=== PATIENT | female | born 1985 | race Caucasian/White ===

== ENCOUNTER 2020-10-04 09:00 | Outpatient (RCR) | payer OTHER, SELFPAY ==
[2020-09-30 12:03] VITALS: BMI 28.7
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
--- NOTE | 2020-10-03 15:23 | PC.NURSE ---
Client called cancelling for today because of a headache
--- NOTE | 2020-10-05 12:50 | PC.NURSE ---
Pt arrived today at community meeting and informed staff that she cannot attend group today, as she has a dental abscess or something similar. Her cheek was visibly swollen. She said she will call her MD and try to be seen.
--- NOTE | 2020-10-06 10:04 | PC.NURSE ---
Patient did not show to the program this morning. I called patient at 0930 and patient stated she has a visit with her children and could come to the program after the visit at 10:30. I told patient this was not possible as the program starts at 0900. I reviewed with patient that she has missed 3 days this week and at this point if she wanted to continue the program she would need to contact the program to set up a reassessment. Patient agreed and asked that I send her an email with contact information, which I did.
== END 2020-10-07 09:22 | disposition home or self-care (01) ==
LOC: HO.PHPA 09:00
PROVIDERS: Visit Provider Psychiatry & Neurology Psychiatry
DX: F39 Unspecified mood [affective] disorder (principal); F43.10 Post-traumatic stress disorder, unspecified; F11.20 Opioid dependence, uncomplicated; Z62.810 Personal history of physical and sexual abuse in childhood
CPT/HCPCS: 90791; 90853

== ENCOUNTER 2020-12-02 11:15 | Outpatient (RCR) | payer OTHER, SELFPAY ==
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
[2020-11-09 14:09] VITALS: BMI 28.8
--- NOTE | 2020-11-09 14:23 | PC.ADMIT ---
Patient admit to PHP today due to increased depression and anxiety, panic attacks. Patient states she feels hopeless denies SI, HI, VH, AH. No medications to verify, patient has not taken meds for over a month. Per [facility], last meds picked up were in September of this year and were for only 7 days. Patient no longer goes to Methadone Clinic. Reports last time she used heroin was over 2 weeks ago. Patient denies every taken Narcan. Current medical issue: Patient has new lumps bilateral breasts. Patient waiting for call to schedule mammogram. Encouraged patient to call PCP today as patient has history of Lumpectomy right breast. Patient verbalized understanding. Patient reports no alcohol use x 2 years. Patient affect appropriate, alert, responsive, anxious, depressed. Patient verbalizes understanding of admission instructions, [facility] [place] schedule.
--- NOTE | 2020-11-11 08:02 | PC.NURSE ---
Case opened in treatment team
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
--- NOTE | 2020-12-02 14:01 | PC.NURSE ---
Patient discharge 12/07/2020. Patient declined discharge /medication appointments with Bell Valdez APRN and this development writer. Discharge medication list sent to PCP, JAMEEL Rodgers.
--- NOTE | 2020-12-02 14:44 | P.EN_ITS ---
Event Note Date of Service: 12/02/20 Event Note: Patient was scheduled to meet with this health technical writer on December 01 at 11:20, and did not appear for appointment. She was rescheduled to meet with this health technical writer today at 13:10. Patient did not appear for today's appointment either.
--- NOTE | 2020-12-02 14:44 | PM.EVENT ---
Event Note Date of Service: 12/02/20 Event Note: Patient was scheduled to meet with this typewriter repairer on December 01 at 11:20, and did not appear for appointment. She was rescheduled to meet with this typewriter repairer today at 13:10. Patient did not appear for today's appointment either.
== END 2020-12-05 07:53 | disposition home or self-care (01) ==
LOC: HO.PHPA 11:15
PROVIDERS: Visit Provider Psychiatry & Neurology Psychiatry
DX: F43.10 Post-traumatic stress disorder, unspecified (principal); F39 Unspecified mood [affective] disorder; F11.20 Opioid dependence, uncomplicated; Z62.810 Personal history of physical and sexual abuse in childhood
CPT/HCPCS: 90791; 90853

== ENCOUNTER 2021-11-03 00:45 | Emergency (ER) | payer MEDICAID, SELFPAY ==
[2021-11-03 00:47] VITALS: BP 143/100; PULSE 90; RESP 15; TEMP 36.8; O2SAT 96
--- NOTE | 2021-11-03 01:05 | ED.SKABFB ---
HPI - Skin/Abscess/Foreign Bdy General Chief complaint: Skin/Abscess/Foreign Body Stated complaint: Abscess Time Seen by Provider: 11/03/21 00:47 Source: patient Mode of arrival: ambulatory Limitations: no limitations History of Present Illness HPI narrative: 36-year-old female with a history of IV drug abuse here with reports of redness, swelling to the left forearm. Patient tells me she used cocaine and the arm 3 days ago. She knows that she missed the vein. The next day she developed swelling and redness. She tried to open the abscess with a razor blade at home but was unsuccessful. She does want detox resources. Her last tetanus was in February of 2021 Related Data Previous Rx's Medication Instructions Recorded escitalopram oxalate 5 mg tablet 5 mg PO DAILY 7 days #7 tabs 11/23/20 (Lexapro) prazosin 5 mg capsule 5 mg PO BEDTIME 7 days #7 caps 11/23/20 quetiapine 100 mg tablet (Seroquel) 100 mg PO BID 7 days #14 tabs 11/23/20 quetiapine 200 mg tablet (Seroquel) 200 mg PO BEDTIME 7 days #7 tabs 11/23/20 ibuprofen 800 mg tablet 800 mg PO Q6H PRN pain #30 tabs 11/03/21 sulfamethoxazole 800 1 tab PO Q12H #14 tabs 11/03/21 mg-trimethoprim 160 mg tablet (Bactrim DS) Allergies Allergy/AdvReac Type Severity Reaction Status Date / Time doxycycline Allergy Redness of Verified 09/30/20 11:47 Skin Review of Systems Review of Systems: Yes all other systems are reviewed and are negative Constitutional: Constitutional: Reports no additional constitutional complaints, Denies body ache(s), Denies chills, Denies fever(s), Denies headache(s) and Denies weakness Eyes: Eyes: Reports no additional eye complaints and Denies change in vision ENT: Reports system reviewed and no additional complaints, except as documented, Denies dizziness, Denies headache(s), Denies nasal congestion, Denies nasal discharge and Denies neck pain Cardiovascular: Cardiovascular: Reports no additional cardiovascular complaints, Denies chest pain, Denies leg edema and Denies dyspnea Respiratory: Respiratory: Reports no additional respiratory complaints, Denies cough and Denies dyspnea Gastrointestinal: Gastrointestinal: Reports no additional gastrointestinal complaints, Denies abdominal pain, Denies diarrhea, Denies nausea and Denies vomiting Genitourinary: Genitourinary: Reports no additional female genitourinary complaints and Denies urinary incontinence Musculoskeletal: Musculoskeletal: Reports no additional musculoskeletal complaints, Denies back pain, Denies arthralgias, Denies joint swelling, Denies neck pain, Denies numbness and Denies tingling Integumentary/Breasts: Skin/Breast: Reports system reviewed and no additional complaints, except as docu, Reports swelling, Reports erythema and Denies rash Neurologic: Reports system reviewed and no additional complaints, except as documented, Denies Abnormal speech present, Denies dizziness, Denies headache(s), Denies numbness, Denies tingling and Denies weakness PMFSH Past Medical History Attestation statement: The following information was validated with the patient. Source: old records reviewed and nursing notes reviewed Medical History Degenerative arthritis Diverticula of intestine Endometriosis Surgical History History of appendectomy History of delivery History of lumpectomy of right breast Social History Social History Household Members: Family Patient Tobacco Use Status: Current everyday Tobacco user Tobacco use type: Cigarette Cigarette Packs Per Day: 1 Cigarettes Per Day: 20 Years Smoked: since I was 12 Physical Exam Vital Signs: Vital Signs: Last Vital Signs Temp 98.3 F 11/03/21 00:47 Pulse 90 11/03/21 00:47 Resp 15 11/03/21 00:47 BP 143/100 H 11/03/21 00:47 Pulse Ox 96 11/03/21 00:47 O2 Del Method 11/03/21 00:47 BMI result Body Mass Index 30.0 Const: General: cooperative, healthy appearing, comfortable and no acute distress Orientation/consciousness: patient oriented x3 Limitations: no limitations HEENT: Head: Yes normal to inspection Ears: hearing grossly normal bilaterally General nose exam: Normal external nose present Face and sinus: Yes normal facial exam Mouth: Normal oral and palatal mucosa present Throat: Yes posterior oropharynx normal Eyes: General: appearance normal, both eyes and all related structures Pupils: Equal, round and reactive pupils present Neck: Neck: Yes normal visual inspection Chest: Chest palpation & inspection: normal inspection of the chest Resp: Effort & Inspection: normal respiratory effort Auscultation: clear to auscultation bilaterally Cardio: Rate: regular rate Rhythm: regular rhythm Peripheral pulses: Peripheral pulses 2+ throughout GI: Inspection: Yes normal to inspection Palpation (GI): Soft to palpation and nontender Auscultation: normal bowel sounds Back/Spine/Pelvis: Thoracic/Lumbar Spine: thoracic and lumbar spine normal to inspection Skin: General skin exam: no rashes or lesions noted Neuro: General: patient oriented x3, no focal motor deficits and normal sensation to monofilament Cranial nerves: Yes Equal, round and reactive pupils present Cognition (Neuro): normal cognition Speech: No Abnormal speech present Gait exam (Neuro): Normal gait present Motor exam (neuro): 5/5 motor strength present throughout Extrem: General: Yes normal to inspection Elbow/forearm/wrist images: 1. Circular area of redness/swelling which is indurated/firm. No fluctuance/pointing. Course Course Course Narrative: 36-year-old female with a history of IV drug abuse here with abscess the left forearm. The site is firm and indurated. It is not fluctuant. I discussed with the patient that at this time I and D is not indicated. She should continue warm compresses. We will start her on oral antibiotics. I recommended she return if the site is more fluctuance so we may perform an I&D. I offer detox resources and she declined this. Reviewed worrisome signs and symptoms of when to return to the emergency department. Comfortable discharge home. MDM - Skin/Abscess/Foreign Bdy Medical Records Attestation: I reviewed the patient's medical records. Lab Data Attestation: I reviewed the patient's lab results. Discharge Plan Discharge Clinical Impression: Abscess of skin or subcutaneous tissue Patient Disposition: Home, Self-Care Instructions: Abscess (ED) Additional Instructions: Warm compresses 4 times daily Come back to see us if the abscess is softer so we can drain it Prescriptions: New ibuprofen 800 mg tablet 800 mg PO Q6H PRN (Reason: pain) Qty: 30 0RF sulfamethoxazole-trimethoprim [Bactrim DS] 800-160 mg tablet 1 tab PO Q12H Qty: 14 0RF No Action quetiapine [Seroquel] 100 mg tablet 100 mg PO BID 7 Days Qty: 14 0RF quetiapine [Seroquel] 200 mg tablet 200 mg PO BEDTIME 7 Days Qty: 7 0RF prazosin 5 mg capsule 5 mg PO BEDTIME 7 Days Qty: 7 0RF escitalopram oxalate [Lexapro] 5 mg tablet 5 mg PO DAILY 7 Days Qty: 7 0RF Referrals: Physician,Unknown J [Primary Care Provider] -
[2021-11-03] MEDS: Sulfamethox/Trimeth 800/160 TABLET 1 TAB PO (01:11)
[2021-11-03] MEDS: Lidocaine 4 % Cream KIT 1 APPL TOPICAL (01:13)
[2021-11-03] MEDS: Ketorolac Tromethamine 60 MG/2 ML VIAL IM (01:13)
== END 2021-11-03 01:29 | disposition home or self-care (01) ==
LOC: HO.ED 01:27
PROVIDERS: Emergency Provider Internal Medicine
DX: L02.414 Cutaneous abscess of left upper limb (principal); F14.90 Cocaine use, unspecified, uncomplicated
CPT/HCPCS: 96372; 99283; 99284; J1885

== ENCOUNTER 2021-11-15 06:41 | Inpatient (IN) | payer OTHER, SELFPAY ==
--- NOTE | 2021-11-15 | ECG_ITS ---
Test Reason : med clearance Blood Pressure : / mmHG Vent. Rate : 049 BPM Atrial Rate : 049 BPM P-R Int : 138 ms QRS Dur : 098 ms QT Int : 510 ms P-R-T Axes : -02 062 044 degrees QTc Int : 460 ms Sinus bradycardia Nonspecific T wave abnormality Borderline ECG No previous ECGs available Referred By: Karin Spangler Electronically Signed By:DEBBI ROBINS
[2021-11-15 07:05] VITALS: BP 142/105; PULSE 76; RESP 16; TEMP 36.7; O2SAT 98; BMI 28.6
--- NOTE | 2021-11-15 07:26 | ED.PSYCH ---
HPI - Psych General Chief Complaint: Psychiatric Symptoms Stated Complaint: Seeking detox/Abscess Time Seen by Provider: 11/15/21 07:26 Source: patient Mode of arrival: ambulatory Limitations: no limitations History of Present Illness MD complaint: suicidal ideation, feels depressed and substance abuse Onset (ago): day(s) (few) Duration: getting worse History of same: Yes Relieving factors: none Exacerbating factors: drug use Context: recent drug abuse and not taking psychiatric medications Associated psychiatric symptoms: depression and suicidal ideation Associated symptoms: other (c/o rash at injection sites) Treatments prior to arrival: none If self harm: admits thoughts of self harm Related Data Home Medications Medication Instructions Recorded Confirmed methadone 95 mg PO DAILY 11/15/21 11/15/21 Previous Rx's Medication Instructions Recorded escitalopram oxalate 5 mg tablet 5 mg PO DAILY 7 days #7 tabs 11/23/20 (Lexapro) prazosin 5 mg capsule 5 mg PO BEDTIME 7 days #7 caps 11/23/20 quetiapine 100 mg tablet (Seroquel) 100 mg PO BID 7 days #14 tabs 11/23/20 quetiapine 200 mg tablet (Seroquel) 200 mg PO BEDTIME 7 days #7 tabs 11/23/20 ibuprofen 800 mg tablet 800 mg PO Q6H PRN pain #30 tabs 11/03/21 sulfamethoxazole 800 1 tab PO Q12H #14 tabs 11/03/21 mg-trimethoprim 160 mg tablet (Bactrim DS) Allergies Allergy/AdvReac Type Severity Reaction Status Date / Time doxycycline Allergy Redness of Verified 09/30/20 11:47 Skin Review of Systems Review of Systems: Constitutional : No Fever, No Chills ENT/Mouth : No Ear Pain, No Nasal Congestion, No sore throat Eyes: No Eye Pain, No Swelling, No Redness Cardiovascular : No Chest Pain, No SOB Respiratory : No Cough, No Sputum, No Dyspnea Gastrointestinal : No Nausea, No Vomiting, No Diarrhea, No Hematochezia, No Melena Genitourinary : No Dysuria, No Urinary Frequency, No Hematuria Musculoskeletal : No Myalgias Skin : pos Skin Lesions, pos rash Neuro : No Weakness, No Numbness, No Paresthesias, No Dizziness, No Headache Psych : positive Anxiety, positive Depression, positive SI no HI Heme/Lymph: No Lymphadenopathy Endocrine : No Polyuria, No Polydipsia All other systems reviewed and are negative [facility] Past Medical History Attestation statement: The following information was validated with the patient. Medical History Degenerative arthritis Diverticula of intestine Endometriosis Mood disorder Opioid dependence Post traumatic stress disorder (PTSD) Surgical History History of appendectomy History of delivery History of lumpectomy of right breast Social History Social History (Updated 11/15/21 @ 07:27 by Karin Spangler DO) Household Members: Family Patient Tobacco Use Status: Current everyday Tobacco user Tobacco use type: Cigarette Cigarette Packs Per Day: 1 Cigarettes Per Day: 20 Years Smoked: since I was 12 Use of substances other than those prescribed or required for medical reasons: Yes Advance Directives: No Healthcare Proxy: No Guardian: No Physical Exam Vital Signs: Vital Signs: Last Vital Signs Temp 98.0 F 11/15/21 07:05 Pulse 76 11/15/21 07:05 Resp 16 11/15/21 07:05 BP 142/105 H 11/15/21 07:05 Pulse Ox 98 11/15/21 07:05 O2 Del Method 11/15/21 07:05 BMI result Body Mass Index 28.6 Appearance: Alert. Oriented X3. No acute distress. Anxious, withdrawn, somewhat agitated with questioning Eyes: Pupils equal, round and reactive to light. ENT: Pharynx normal. Neck: Normal inspection. Neck supple. injection site L EJ but no signs of abscess or cellulitis CVS: Normal heart rate and rhythm. Pulses normal. Respiratory: No respiratory distress. Breath sounds normal. Abdomen: Soft and nontender. Skin: Skin warm and dry. Normal skin color. Normal skin turgor. both ACs old and new injection sites no signs of cellulitis or abscess, both ankles have injection sites R ankle no signs of infection, L ankle mild erythema noted no fluctuance on medial aspect of ankle Extremities: No lower extremity edema. No calf ttp Neuro: Oriented X 3. No motor deficit. No sensory deficit. CN 2-12 intact Course Course Course Narrative: admit to [facility]3 per CARE team MDM - Psych MDM Narrative Medical decision making narrative: 36 yo female with hx of mood disorder, PTSD, substance abuse here with c/o drug abuse and not taking medications since April. She reports SI. She also notes that she has concern for infection at IVDA site there are no abscesses noted but she does have mild erythema on left ankle will start on cephalexin. Will obtain labs and refer to [facility]. Lab Data Result diagrams: 11/15/21 12:00 11/15/21 12:00 Labs: Lab Results 11/15/21 11/15/21 11/15/21 Range/Units 08:20 12:00 12:00 WBC 5.9 (4.8-10.8) X10*3/uL RBC 4.33 (4.20-5.50) X10*6/uL Hgb 12.4 (12.0-16.0) g/dl Hct 37.7 (37.0-47.0) % MCV 87.1 (80.0-98.0) fL MCH 28.6 (27.0-33.0) pg MCHC 32.9 (31.0-35.0) g/dl RDW 13.2 (11.0-16.0) % Plt Count 262 (160-400) X10*3/uL MPV 10.4 (9.4-12.3) fL Immature Gran % (Auto) 0.2 (0.0-0.4) % Neut % (Auto) 54.0 (45-73) % Lymph % (Auto) 32.2 (20-40) % [place] % (Auto) 10.8 (2-11) % Eos % (Auto) 2.0 (0-4) % Baso % (Auto) 0.8 (0-2) % Lymph # (Auto) 1.9 (1.2-4.9) X10*3/uL [place] # (Auto) 0.6 (0.1-1.2) X10*3/uL Eos # (Auto) 0.1 (0.0-0.4) X10*3/uL Baso # (Auto) 0.1 (0.0-0.2) X10*3/uL Abs Immat Gran (auto) 0.01 (0.00-0.03) X10*3/uL Absolute Neuts (auto) 3.2 (2.0-8.3) x10*3/uL Absolute Nucleated RBC 0.000 (0.0-0.012) X10*3/uL Nucleated RBC % (auto) 0.0 (0.0-0.2) /100WBC Sodium 138 (135-145) mmol/L Potassium 4.2 (3.3-5.1) mmol/L Chloride 106 (96-108) mmol/L Carbon Dioxide 25 (22-29) mmol/L Anion Gap 11 L (12-20) BUN 11 (9-16) mg/dL Creatinine 0.71 (0.5-1.4) mg/dL Estim Creat Clear Calc 109.1 Estimated GFR > 60 Random Glucose 102 (60-115) mg/dL Calcium 8.6 (8.4-10.2) mg/dL Total Bilirubin 0.4 (0.0-1.0) mg/dL Direct Bilirubin < 0.2 (0.0-0.5) mg/dL AST 20 (5-31) U/L ALT 12 (0-31) U/L Alkaline Phosphatase 63 (39-117) U/L Total Protein 6.8 (6.5-8.0) g/dL Albumin 4.0 (3.5-5.0) g/dL COVID-19 (RUSSELL) Negative (Negative) COVID-19 Clin Com See Note ECG Data Attestation: I personally reviewed and interpreted this ECG as follows: ECG interpretation date: 11/15/21 ECG interpretation time: 14:10 Interpretation: Rate: 49 Rhythm: sinus bradycardia [place]anan: normal Normal P waves. Normal NAVARRO. Normal QRS complex. ST T wave : no JOSE, nonspecific qTC: prolonged prior studies: no acute ischemia The study has been interpreted contemporaneously by me. . Discharge Plan Discharge Clinical Impression: Suicidal ideation, Cellulitis, Substance abuse Patient Disposition: Admitted As Inpatient Prescriptions: No Action quetiapine [Seroquel] 100 mg tablet 100 mg PO BID 7 Days Qty: 14 0RF quetiapine [Seroquel] 200 mg tablet 200 mg PO BEDTIME 7 Days Qty: 7 0RF prazosin 5 mg capsule 5 mg PO BEDTIME 7 Days Qty: 7 0RF escitalopram oxalate [Lexapro] 5 mg tablet 5 mg PO DAILY 7 Days Qty: 7 0RF ibuprofen 800 mg tablet 800 mg PO Q6H PRN (Reason: pain) Qty: 30 0RF sulfamethoxazole-trimethoprim [Bactrim DS] 800-160 mg tablet 1 tab PO Q12H Qty: 14 0RF methadone 95 mg PO DAILY
--- NOTE | 2021-11-15 07:45 | PC.NURSE ---
Addendum to triage - Client self-presents to Emergency Department with SI with plan to overdose on drugs (cocaine, heroin). Pt. states precipitant is loss of her children in June of 2021. Pt. states past diagnosis of PTSD, MDD, anxiety, depression. States previously on Seroquel and Prazosin last in April of 2021. Pt. has abscesses which she had previously had treated here November 03, 2021. Pt. states attempting suicide by using as much drugs as she can obtain . Denies auditory and/or visual hallucinations. Contracts for safety. Pt. is current Methadone pt. at [facility], [place], [place]. Lives with her friend and her friend's .
[2021-11-15 08:52] LABS: COVID-19 Test Negative (Negative); IDNOW Serial# 16C4AD1C
[2021-11-15] MEDS: cephALEXin 500 MG CAPSULE PO ×4 (09:00→22:15)
[2021-11-15] MEDS: methADONE HCl 20 MG/2 ML ORAL.CONC 95 MG PO (09:37)
--- NOTE | 2021-11-15 11:23 | PC.NURSE ---
clients daughter called to check in on patient
[2021-11-15 12:06] LABS: MANUAL DIFF FLAG NO
[2021-11-15 12:08] LABS: Basophils Absolute Auto 0.1 X10*3/uL (0.0-0.2); Basophils Percent Auto 0.8 % (0-2); Eosinophils Absolute Auto 0.1 X10*3/uL (0.0-0.4); Hematocrit 37.7 % (37.0-47.0); Hemoglobin 12.4 g/dl (12.0-16.0); Imm Gran Abs Auto 0.01 X10*3/uL (0.00-0.03); Imm Gran Pct Auto 0.2 % (0.0-0.4); Lymphocytes Absolute Auto 1.9 X10*3/uL (1.2-4.9); Lymphocytes Percent Auto 32.2 % (20-40); Mean Corpuscular HGB Conc 32.9 g/dl (31.0-35.0); Mean Corpuscular Hemoglobin 28.6 pg (27.0-33.0); Mean Corpuscular Volume 87.1 fL (80.0-98.0); Mean Platelet Volume 10.4 fL (9.4-12.3); Monocytes Absolute Auto 0.6 X10*3/uL (0.1-1.2); Monocytes Percent Auto 10.8 % (2-11); Neutrophils Absolute Auto 3.2 x10*3/uL (2.0-8.3); Platelet Count 262 X10*3/uL (160-400); Red Blood Count 4.33 X10*6/uL (4.20-5.50); Red Cell Distribution Width 13.2 % (11.0-16.0); White Blood Count 5.9 X10*3/uL (4.8-10.8)
[2021-11-15 12:32] LABS: Alanine Aminotransferase 12 U/L (0-31); Alkaline Phosphatase 63 U/L (39-117); Anion Gap 11 (12-20); Aspartate Amino Transferase 20 U/L (5-31); Bilirubin Direct < 0.2 mg/dL (0.0-0.5); Bilirubin Total 0.4 mg/dL (0.0-1.0); Blood Urea Nitrogen 11 mg/dL (9-16); Calcium 8.6 mg/dL (8.4-10.2); Carbon Dioxide 25 mmol/L (22-29); Chloride 106 mmol/L (96-108); Creatinine Clr Calc Pharmacy 109.1; Estimated Glomerular Filt Rate > 60; Glucose Random 102 mg/dL (60-115); Potassium 4.2 mmol/L (3.3-5.1); Sodium 138 mmol/L (135-145); Total Protein 6.8 g/dL (6.5-8.0)
[2021-11-15] MEDS: Ibuprofen 600 MG TABLET PO ×2 (14:38→22:43)
[2021-11-15 18:00] LABS: Appearance Urine CLOUDY; Color Urine RED; Glucose Urine UA NEG (NEG); Leukocyte Esterase Urine NEG (NEG); Nitrite Urine POS (NEG); Specific Gravity - Urine >= 1.030 (1.005-1.025); UACC Culture Trigger YES; Urine Blood 3+ (NEG); Urine Ketones 5 MG/DL (NEG); Urine Protein 2+ MG/DL (NEG-TRACE)
[2021-11-15 18:04] LABS: UPreg QC Valid YES; Urine Pregnancy NEGATIVE (NEGATIVE)
[2021-11-15 18:17] LABS: Fentanyl, urine POSITIVE (Not Detect)
[2021-11-15 18:19] LABS: Amphetamine Screen Urine Not Detected (Not Detect); Barbiturates, Urine Not Detected (Not Detect); Cannabinoid Screen Urine POSITIVE (Not Detect); Cocaine Screen Urine POSITIVE (Not Detect); Opiate Screen Urine POSITIVE (Not Detect); Phencyclidine Screen Urine Not Detected (Not Detect)
[2021-11-15 18:25] LABS: RBC Urine TNTC /HPF (0); WBC Urine 0-2 /HPF (0-4)
[2021-11-15 18:26] LABS: Bacteria Urine 1+ /LPF
[2021-11-15 20:30] VITALS: BP 133/72; PULSE 60; TEMP 36.7; O2SAT 98
[2021-11-15] MEDS: traZODone HCL 50 MG TABLET PO (22:16)
[2021-11-15] MEDS: Acetaminophen 325 MG TABLET 650 MG PO (22:16)
[2021-11-15] MEDS: hydrOXYzine HCL 25 MG TABLET PO (22:16)
[2021-11-15 23:45] VITALS: BMI 25.3
--- NOTE | 2021-11-16 01:38 | PC.NURSE ---
admission noted for 11/15/21-this is the 1st behavioral health admission for this 36 year old female. legal CVC dx unspecified mood d/o, opioid dependence, uncomplicated. PTSD. patient with significant HX of trauma. patient endorses substance use opioids, fentanyl and marijuana. reports long HX of use. Hx of being on medications for behavioral health issues but none since April. patient with multiple track sherman on bilateral arms, ankles + c/o neck discomfort. patient also with a significant sun burn. started on antibiotics for area on L forearm. was a referral from the ER by the CARE team. nurse to nurse, collateral information obtained prior to admission.
[2021-11-16] MEDS: hydrOXYzine HCL 25 MG TABLET PO (06:43)
[2021-11-16] MEDS: Ibuprofen 600 MG TABLET PO ×2 (06:48→12:53)
[2021-11-16] MEDS: methADONE HCl 20 MG/2 ML ORAL.CONC 95 MG PO (08:20)
[2021-11-16] MEDS: cephALEXin 500 MG CAPSULE PO ×4 (08:20→20:28)
[2021-11-16 08:35] VITALS: BP 129/79; PULSE 69; RESP 18; TEMP 36.7; O2SAT 99
[2021-11-16] MEDS: QUEtiapine Fumarate 50 MG TABLET PO (09:24)
[2021-11-16 10:47] LABS: Alanine Aminotransferase 13 U/L (0-31); Albumin Level 4.2 g/dL (3.5-5.0); Alkaline Phosphatase 64 U/L (39-117); Anion Gap 11 (12-20); Aspartate Amino Transferase 14 U/L (5-31); Bilirubin Total 0.4 mg/dL (0.0-1.0); Blood Urea Nitrogen 15 mg/dL (9-16); Calcium 9.1 mg/dL (8.4-10.2); Carbon Dioxide 25 mmol/L (22-29); Chloride 106 mmol/L (96-108); Cholesterol 175 mg/dL; Creatinine Clr Calc Pharmacy 98.5; Estimated Glomerular Filt Rate > 60; Glucose Fasting 93 mg/dL (60-99); HDL Cholesterol 40 mg/dL; LDL Cholesterol Calculated 114 mg/dl; Potassium 4.3 mmol/L (3.3-5.1); Sodium 138 mmol/L (135-145); Thyroid Stimulating Hormone 1.05 uIU/mL (0.32-4.0); Triglycerides 106 mg/dL
[2021-11-16 10:48] LABS: Benzodiazepines Screen Urine NOT DETECTED (Not Detect)
[2021-11-16 10:54] VITALS: BMI 25.3
--- NOTE | 2021-11-16 11:00 | MHC.CLN ---
RE: CONSULT PT IS MODERATELY MALNOURISHED PT WITH 10% SIGNIFICANT WT LOSS X 1 MONTH AND POOR CHRONIC PO INTAKE X 3 MONTHS R/T IVDA, NON COMPLIANCE WITH PSYCH MEDICATION. PT HAS RECENT FLUCTUATING WTS 69KG (11/15/21) AND 75.75KG (11/15/21) IF USING THE 69KG WT- PT TRIGGERS FOR 10% SIGNIFICANT WT LOSS X 1 MONTH. PT REPORTED WT LOSS AND POOR PO INTAKE. ALSO NOTED ON NSG ADMISSION ASSESSMENT DIET RX: REGULAR-APPROPRIATE MONITOR PO INTAKE CLOSELY IF PO INTAKE <75% X 3 DAYS; RECOMMEND ADDING ENSURE BID TO INCREASE KCALS WEEKLY WEIGHTS SEE ALSO FULL CLINICAL NUTRITION ASSESSMENT
[2021-11-16 11:16] LABS: Magnesium 2.1 mg/dL (1.6-2.6)
[2021-11-16 11:25] LABS: Folate 14.5 ng/mL (> or = 4.0); Vitamin B12 751 pg/mL (200-900)
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
[2021-11-16] MEDS: QUEtiapine Fumarate 100 MG TABLET PO (15:21)
[2021-11-16] MEDS: Escitalopram Oxalate 5 MG TABLET PO (15:21)
[2021-11-16 18:00] VITALS: BP 135/78; PULSE 62; TEMP 36.8; O2SAT 98
[2021-11-16] MEDS: Prazosin HCL 1 MG CAPSULE PO (20:28)
[2021-11-16] MEDS: hydrOXYzine HCL 50 MG TABLET PO (20:28)
[2021-11-16] MEDS: QUEtiapine Fumarate 200 MG TABLET PO (20:28)
[2021-11-17 06:00] VITALS: BP 126/81; PULSE 58; RESP 18; TEMP 36.4; O2SAT 98
[2021-11-17] MEDS: Ibuprofen 800 MG TABLET PO ×2 (07:32→19:23)
[2021-11-17] MEDS: QUEtiapine Fumarate 50 MG TABLET PO (07:32)
[2021-11-17] MEDS: cephALEXin 500 MG CAPSULE PO ×4 (08:13→20:41)
[2021-11-17] MEDS: QUEtiapine Fumarate 100 MG TABLET PO ×2 (08:13→12:48)
[2021-11-17] MEDS: Escitalopram Oxalate 5 MG TABLET PO (08:13)
[2021-11-17] MEDS: methADONE HCl 20 MG/2 ML ORAL.CONC 95 MG PO (08:13)
--- NOTE | 2021-11-17 12:29 | HO.PSYCHPN ---
Subjective Subjective Date of Service: 11/17/21 Reason For Visit: Seeking detox/Abscess Subjective Notes: Conditional Voluntary Interim History: Pt more visible in the morning. She later went to bed, reports she did not sleep very well and feels tired. She denies SI. She continues to report depressed mood, hopeless. interview limited by fact that pt reports she is tired and wanted to sleep. Per nursing, no behavioral concern. Medication Compliance: Yes Side effects from medications: No Attending Groups: Yes Review of Systems Review of Systems Constitutional : No Fever, No Chills ENT/Mouth : No Ear Pain, No Nasal Congestion, No sore throat Eyes: No Eye Pain, No Swelling, No Redness Cardiovascular : No Chest Pain, No SOB Respiratory : No Cough, No Sputum, No Dyspnea Gastrointestinal : No Nausea, No Vomiting, No Diarrhea, No Hematochezia, No Melena Genitourinary : No Dysuria, No Urinary Frequency, No Hematuria Musculoskeletal : No Myalgias Skin : pos Skin Lesions, pos rash Neuro : No Weakness, No Numbness, No Paresthesias, No Dizziness, No Headache Psych : positive Anxiety, positive Depression, positive SI no HI Heme/Lymph: No Lymphadenopathy Endocrine : No Polyuria, No Polydipsia All other systems reviewed and are negative Mental Status Exam Mental Status Exam Narrative: appropriately dressed and groomed. cooperative, no PMA/PMR. speech nml in rate, amount, loudness, tone, latency. thoughts linear and logical. affect full range, normo-intense, non-labile. mood all right. endorses minor SI currently but stronger SIBI (denies intent or plan on unit). denies HI/AVH. Diagnostics Vital Signs (24Hr): Vital Signs - 24 hr 11/16/21 18:00 11/17/21 06:00 Temperature 98.3 F 97.6 F Pulse Rate 62 58 Respiratory Rate 18 Blood Pressure 135/78 126/81 Pulse Oximetry 98 98 Oxygen Delivery Method Room Air Room Air BMI result Body Mass Index 25.3 Labs Results: 11/15/21 12:00 11/16/21 09:04 Labs: Laboratory Results - last 48 hr 11/15/21 11/15/21 11/15/21 17:51 17:51 17:51 Sodium Potassium Chloride Carbon Dioxide Anion Gap BUN Creatinine Estim Creat Clear Calc Estimated GFR Fasting Glucose Calcium Magnesium Total Bilirubin AST ALT Alkaline Phosphatase Total Protein Albumin Triglycerides Cholesterol LDL Cholesterol, Calc HDL Cholesterol Vitamin B12 Folate TSH Urine Color RED A Urine Appearance CLOUDY Urine pH 5.0 Ur Specific [place] >= 1.030 H Urine Protein 2+ H Urine Glucose (UA) NEG Urine Ketones 5 Urine Blood 3+ H Urine Nitrite POS H Ur Leukocyte Esterase NEG Urine RBC TNTC H Urine WBC 0-2 Ur Squamous Epith Cells NONE Urine Bacteria 1+ Urine Test NEGATIVE Urine Opiates Screen POSITIVE H Urine Fentanyl Screen POSITIVE H Ur Barbiturates Screen Not Detected Ur Phencyclidine Scrn Not Detected Ur Amphetamines Screen Not Detected U Benzodiazepines Scrn NOT DETECTED Urine Cocaine Screen POSITIVE H U Marijuana (THC) Screen POSITIVE H 11/16/21 11/16/21 09:04 09:04 Sodium 138 Potassium 4.3 Chloride 106 Carbon Dioxide 25 Anion Gap 11 L BUN 15 Creatinine 0.77 Estim Creat Clear Calc 98.5 Estimated GFR > 60 Fasting Glucose 93 Calcium 9.1 Magnesium 2.1 Total Bilirubin 0.4 AST 14 ALT 13 Alkaline Phosphatase 64 Total Protein 7.0 Albumin 4.2 Triglycerides 106 Cholesterol 175 LDL Cholesterol, Calc 114 HDL Cholesterol 40 Vitamin B12 751 Folate 14.5 TSH 1.05 Urine Color Urine Appearance Urine pH Ur Specific [place] Urine Protein Urine Glucose (UA) Urine Ketones Urine Blood Urine Nitrite Ur Leukocyte Esterase Urine RBC Urine WBC Ur Squamous Epith Cells Urine Bacteria Urine Test Urine Opiates Screen Urine Fentanyl Screen Ur Barbiturates Screen Ur Phencyclidine Scrn Ur Amphetamines Screen U Benzodiazepines Scrn Urine Cocaine Screen U Marijuana (THC) Screen Medications Medications Current Medications Acetaminophen (Acetaminophen 325 Mg Tablet) 650 mg PO Q6H PRN PRN Reason: Headache/Pain Mild Scale (1-3) Last Admin: 11/17/21 12:47 Dose: 650 mg Al Hydroxide/Mg Hydroxide (Magnesium Hydrox/Alum Hydrox 30 Ml Oral.Susp) 30 ml PO Q6H PRN PRN Reason: Heartburn/Nausea Cephalexin HCl (Cephalexin 500 Mg Capsule) 500 mg PO QID [facility] Last Admin: 11/17/21 12:48 Dose: 500 mg Escitalopram Oxalate (Escitalopram Oxalate 5 Mg Tablet) 5 mg PO DAILY JADEN Last Admin: 11/17/21 08:13 Dose: 5 mg Hydroxyzine HCl (Hydroxyzine Hcl 50 Mg Tablet) 50 mg PO Q6H PRN PRN Reason: Anxiety Last Admin: 11/16/21 20:28 Dose: 50 mg Ibuprofen (Ibuprofen 800 Mg Tablet) 800 mg PO Q6H PRN PRN Reason: Pain, Moderate (Pain Scale 4-6 Last Admin: 11/17/21 07:32 Dose: 800 mg Magnesium Hydroxide (Milk Of Magnesia 30 Ml Oral.Susp) 30 ml PO DAILY PRN PRN Reason: Constipation Methadone HCl (Methadone Hcl 20 Mg/2 Ml Oral.Conc) 95 mg PO DAILY JADEN Last Admin: 11/17/21 08:13 Dose: 95 mg Prazosin HCl (Prazosin Hcl 1 Mg Capsule) 2 mg PO BEDTIME JADEN; Protocol Stop: 11/18/21 09:00 Prazosin HCl (Prazosin Hcl 1 Mg Capsule) 3 mg PO BEDTIME JADEN; Protocol Stop: 11/19/21 09:00 Prazosin HCl (Prazosin Hcl 1 Mg Capsule) 4 mg PO BEDTIME JADEN; Protocol Stop: 11/20/21 09:00 Prazosin HCl (Prazosin Hcl 5 Mg Capsule) 5 mg PO BEDTIME JADEN; Protocol Quetiapine Fumarate (Quetiapine Fumarate 100 Mg Tablet) 100 mg PO BID@0900,1300 JADEN Last Admin: 11/17/21 12:48 Dose: 100 mg Quetiapine Fumarate (Quetiapine Fumarate 200 Mg Tablet) 200 mg PO BEDTIME JDAEN Last Admin: 11/16/21 20:28 Dose: 200 mg Quetiapine Fumarate (Quetiapine Fumarate 50 Mg Tablet) 50 mg PO Q4H PRN PRN Reason: agitation Last Admin: 11/17/21 07:32 Dose: 50 mg Allergies Allergies Allergy/AdvReac Type Severity Reaction Status Date / Time doxycycline Allergy Redness of Verified 09/30/20 11:47 Skin Assessment & Plan Assessment & Plan (1) Suicidal ideation: Status: Acute Code(s): R45.851 - Suicidal ideations (2) Substance abuse: Status: Acute Code(s): F19.10 - Other psychoactive substance abuse, uncomplicated (3) Chronic post-traumatic stress disorder (PTSD): Status: Acute Code(s): F43.12 - Post-traumatic stress disorder, chronic Plan restart/work back toward the following regimen: lexapro 5 daily, prazosin 5 QHS, seroquel 100/100/300, ibu 800 PRN. asking for chantix - NF, would have to bring in her own supply. continue methadone 95 mg daily. 11/16: lexapro 5 mg daily restarted. seroquel 100/100/200 started. prazosin titration initiated at 1 mg @HS, with orders to increase by 1 mg QHS until dosing of 5 mg QHS is reached. methadone 95 mg daily continued. 11/17 continue lexapro and seroquel. I spent __25____ minutes with the patient and/or on the patient floor today, greater than?50% of which was spent counseling/coordinating care. Reason for contiued inpatient stay Substantial Risk for: harm to self
[2021-11-17] MEDS: Acetaminophen 325 MG TABLET 650 MG PO ×2 (12:47→20:40)
[2021-11-17] MEDS: Prazosin HCL 1 MG CAPSULE 2 MG PO (20:39)
[2021-11-17] MEDS: hydrOXYzine HCL 50 MG TABLET PO (20:40)
[2021-11-17] MEDS: QUEtiapine Fumarate 200 MG TABLET PO (20:41)
[2021-11-17 20:46] VITALS: BP 125/72; PULSE 67; TEMP 36.6; O2SAT 97
[2021-11-18 07:56] VITALS: BP 110/77; PULSE 79; RESP 17; TEMP 36.6; O2SAT 100
[2021-11-18] MEDS: methADONE HCl 20 MG/2 ML ORAL.CONC 95 MG PO (08:05)
[2021-11-18] MEDS: QUEtiapine Fumarate 100 MG TABLET PO ×3 (08:06→20:18)
[2021-11-18] MEDS: cephALEXin 500 MG CAPSULE PO ×4 (08:06→20:18)
[2021-11-18] MEDS: Escitalopram Oxalate 5 MG TABLET PO (08:07)
[2021-11-18] MEDS: Ibuprofen 800 MG TABLET PO ×2 (08:09→17:54)
[2021-11-18] MEDS: Acetaminophen 325 MG TABLET 650 MG PO (13:48)
--- NOTE | 2021-11-18 16:28 | HO.PSYCHPN ---
Subjective Subjective Date of Service: 11/18/21 Reason For Visit: Seeking detox/Abscess Interim History: Met with patient. Chart reviewed. Discussed with Nursing. Overall endorse feeling more depressed, sleeping excessively, want to get her life straightened does feel less overwhelmed and less suicidal. Reports that her mood has improved. Feels better about being back on medications which she had been off for many months. Sleep is still broken and would like a p.r.n. available if she is unable to stay asleep. Reports suicidal thoughts have been much less and has not had any today. Is hopeful she can get supports such as a therapist and prescriber as part of her disposition planning. Medication Compliance: Yes Side effects from medications: No Attending Groups: Yes Review of Systems Acute medical concerns: No Review of Systems Review of Systems Unremarkable Mental Status Exam Mental Status Exam Narrative: overall pleasant. Engaged. Appropriately dressed. Fair hygiene. Organized. Less depressed. No suicidal thoughts today. No HI. No agitation or psychosis. Insight and judgment fair Diagnostics Vital Signs (24Hr): Vital Signs - 24 hr 11/17/21 20:46 11/18/21 07:56 Temperature 97.9 F 97.8 F Pulse Rate 67 79 Respiratory Rate 17 Blood Pressure 125/72 110/77 Pulse Oximetry 97 100 Oxygen Delivery Method Room Air Room Air BMI result Body Mass Index 25.3 Labs Results: 11/15/21 12:00 11/16/21 09:04 Medications Medications Current Medications Acetaminophen (Acetaminophen 325 Mg Tablet) 650 mg PO Q6H PRN PRN Reason: Headache/Pain Mild Scale (1-3) Last Admin: 11/18/21 13:48 Dose: 650 mg Al Hydroxide/Mg Hydroxide (Magnesium Hydrox/Alum Hydrox 30 Ml Oral.Susp) 30 ml PO Q6H PRN PRN Reason: Heartburn/Nausea Cephalexin HCl (Cephalexin 500 Mg Capsule) 500 mg PO QID [facility] Last Admin: 11/18/21 13:48 Dose: 500 mg Escitalopram Oxalate (Escitalopram Oxalate 5 Mg Tablet) 5 mg PO DAILY [facility] Last Admin: 11/18/21 08:07 Dose: 5 mg Hydroxyzine HCl (Hydroxyzine Hcl 50 Mg Tablet) 50 mg PO Q6H PRN PRN Reason: Anxiety Last Admin: 11/17/21 20:40 Dose: 50 mg Ibuprofen (Ibuprofen 800 Mg Tablet) 800 mg PO Q6H PRN PRN Reason: Pain, Moderate (Pain Scale 4-6 Last Admin: 11/18/21 08:09 Dose: 800 mg Magnesium Hydroxide (Milk Of Magnesia 30 Ml Oral.Susp) 30 ml PO DAILY PRN PRN Reason: Constipation Methadone HCl (Methadone Hcl 20 Mg/2 Ml Oral.Conc) 95 mg PO DAILY JADEN Last Admin: 11/18/21 08:05 Dose: 95 mg Prazosin HCl (Prazosin Hcl 1 Mg Capsule) 3 mg PO BEDTIME JADEN; Protocol Stop: 11/19/21 09:00 Prazosin HCl (Prazosin Hcl 1 Mg Capsule) 4 mg PO BEDTIME JADEN; Protocol Stop: 11/20/21 09:00 Prazosin HCl (Prazosin Hcl 5 Mg Capsule) 5 mg PO BEDTIME JADEN; Protocol Quetiapine Fumarate (Quetiapine Fumarate 100 Mg Tablet) 100 mg PO BID@0900,1300 JADEN Last Admin: 11/18/21 13:49 Dose: 100 mg Quetiapine Fumarate (Quetiapine Fumarate 200 Mg Tablet) 200 mg PO BEDTIME JADEN Last Admin: 11/17/21 20:41 Dose: 200 mg Quetiapine Fumarate (Quetiapine Fumarate 50 Mg Tablet) 50 mg PO Q4H PRN PRN Reason: agitation Last Admin: 11/17/21 07:32 Dose: 50 mg Allergies Allergies Allergy/AdvReac Type Severity Reaction Status Date / Time doxycycline Allergy Redness of Verified 09/30/20 11:47 Skin Assessment & Plan Assessment & Plan (1) Suicidal ideation: Status: Acute Code(s): R45.851 - Suicidal ideations (2) Substance abuse: Status: Acute Code(s): F19.10 - Other psychoactive substance abuse, uncomplicated (3) Chronic post-traumatic stress disorder (PTSD): Status: Acute Code(s): F43.12 - Post-traumatic stress disorder, chronic Plan restart/work back toward the following regimen: lexapro 5 daily, prazosin 5 QHS, seroquel 100/100/300, ibu 800 PRN. asking for chantix - NF, would have to bring in her own supply. continue methadone 95 mg daily. 11/16: lexapro 5 mg daily restarted. seroquel 100/100/200 started. prazosin titration initiated at 1 mg @HS, with orders to increase by 1 mg QHS until dosing of 5 mg QHS is reached. methadone 95 mg daily continued. 11/17 continue lexapro and seroquel. 11/18/21: Add Seroquel 100 mg at night as needed if unable to sleep with Seroquel 200 mg I spent minutes with the patient and/or on the patient floor today, greater than?50% of which was spent counseling/coordinating care. Reason for contiued inpatient stay Substantial Risk for: harm to self
[2021-11-18] MEDS: QUEtiapine Fumarate 50 MG TABLET PO (19:39)
[2021-11-18] MEDS: QUEtiapine Fumarate 200 MG TABLET PO (20:18)
[2021-11-18] MEDS: Prazosin HCL 1 MG CAPSULE 3 MG PO (20:18)
[2021-11-18 20:21] VITALS: BP 129/64; PULSE 65; TEMP 36.4; O2SAT 98
[2021-11-18] MEDS: hydrOXYzine HCL 50 MG TABLET PO (21:56)
[2021-11-19] MEDS: QUEtiapine Fumarate 50 MG TABLET PO ×3 (00:07→16:51)
[2021-11-19] MEDS: Ibuprofen 800 MG TABLET PO ×3 (05:09→20:04)
[2021-11-19 08:00] VITALS: BP 139/78; PULSE 97; RESP 17; TEMP 36.7; O2SAT 98
[2021-11-19] MEDS: methADONE HCl 20 MG/2 ML ORAL.CONC 95 MG PO (08:05)
[2021-11-19] MEDS: cephALEXin 500 MG CAPSULE PO ×4 (08:06→20:26)
[2021-11-19] MEDS: QUEtiapine Fumarate 100 MG TABLET PO ×3 (08:06→20:26)
[2021-11-19] MEDS: Escitalopram Oxalate 5 MG TABLET PO (08:06)
--- NOTE | 2021-11-19 12:05 | HO.PSYCHPN ---
Subjective Subjective Date of Service: 11/19/21 Reason For Visit: depression Interim History: reports some frustration at being in the hospital and eager for discharge. However overall feels it is helpful and glad that she is back on medications. Is utilizing Seroquel as needed and we discussed increasing higher dosing on a scheduled basis. Otherwise did not sleep well last night has roommate was loud and noisy. No SI. No psychosis. Participating groups. Medication Compliance: Yes Side effects from medications: No Attending Groups: Yes Review of Systems Acute medical concerns: No Mental Status Exam Mental Status Exam Narrative: overall pleasant. Engaged. Appropriately dressed. Fair hygiene. Organized. Less depressed. No suicidal thoughts today. No HI. No agitation or psychosis. Insight and judgment fair Diagnostics Vital Signs (24Hr): Vital Signs - 24 hr 11/19/21 20:24 11/20/21 08:00 Temperature 98.1 F 98.1 F Pulse Rate 92 112 H Respiratory Rate 16 Blood Pressure 159/92 H 133/74 Pulse Oximetry 98 97 Oxygen Delivery Method Room Air Room Air BMI result Body Mass Index 25.3 Labs Results: 11/15/21 12:00 11/16/21 09:04 Medications Medications Current Medications Acetaminophen (Acetaminophen 325 Mg Tablet) 650 mg PO Q6H PRN PRN Reason: Headache/Pain Mild Scale (1-3) Last Admin: 11/19/21 14:58 Dose: 650 mg Al Hydroxide/Mg Hydroxide (Magnesium Hydrox/Alum Hydrox 30 Ml Oral.Susp) 30 ml PO Q6H PRN PRN Reason: Heartburn/Nausea Benzocaine (Benzocaine 20 % Oral Gel 9 Gm Tube) 1 appl MUCOUS MEM QID PRN PRN Reason: dentail pain Last Admin: 11/19/21 19:56 Dose: 1 appl Cephalexin HCl (Cephalexin 500 Mg Capsule) 500 mg PO QID JADEN Last Admin: 11/20/21 08:16 Dose: 500 mg Escitalopram Oxalate (Escitalopram Oxalate 5 Mg Tablet) 5 mg PO DAILY JADEN Last Admin: 11/20/21 08:16 Dose: 5 mg Hydroxyzine HCl (Hydroxyzine Hcl 50 Mg Tablet) 50 mg PO Q6H PRN PRN Reason: Anxiety Last Admin: 11/19/21 20:26 Dose: 50 mg Ibuprofen (Ibuprofen 800 Mg Tablet) 800 mg PO Q6H PRN PRN Reason: Pain, Moderate (Pain Scale 4-6 Last Admin: 11/20/21 08:16 Dose: 800 mg Magnesium Hydroxide (Milk Of Magnesia 30 Ml Oral.Susp) 30 ml PO DAILY PRN PRN Reason: Constipation Methadone HCl (Methadone Hcl 20 Mg/2 Ml Oral.Conc) 95 mg PO DAILY [facility] Last Admin: 11/20/21 08:14 Dose: 95 mg Omeprazole (Omeprazole 20 Mg Capsule.Dr) 20 mg PO DAILY@0630 [facility] Last Admin: 11/20/21 08:16 Dose: 20 mg Prazosin HCl (Prazosin Hcl 5 Mg Capsule) 5 mg PO BEDTIME [facility]; Protocol Quetiapine Fumarate (Quetiapine Fumarate 50 Mg Tablet) 50 mg PO Q4H PRN PRN Reason: agitation Last Admin: 11/19/21 16:51 Dose: 50 mg Quetiapine Fumarate (Quetiapine Fumarate 100 Mg Tablet) 100 mg PO BEDTIME PRN PRN Reason: insomnia Last Admin: 11/19/21 20:26 Dose: 100 mg Quetiapine Fumarate (Quetiapine Fumarate 300 Mg Tablet) 300 mg PO BEDTIME [facility] Last Admin: 11/19/21 20:26 Dose: 300 mg Quetiapine Fumarate (Quetiapine Fumarate 50 Mg Tablet) 150 mg PO BID@0900,1300 [facility] Last Admin: 11/20/21 08:16 Dose: 150 mg Allergies Allergies Allergy/AdvReac Type Severity Reaction Status Date / Time doxycycline Allergy Redness of Verified 09/30/20 11:47 Skin Assessment & Plan Assessment & Plan (1) Suicidal ideation: Status: Acute Code(s): R45.851 - Suicidal ideations (2) Substance abuse: Status: Acute Code(s): F19.10 - Other psychoactive substance abuse, uncomplicated (3) Chronic post-traumatic stress disorder (PTSD): Status: Acute Code(s): F43.12 - Post-traumatic stress disorder, chronic Plan restart/work back toward the following regimen: lexapro 5 daily, prazosin 5 QHS, seroquel 100/100/300, ibu 800 PRN. asking for chantix - NF, would have to bring in her own supply. continue methadone 95 mg daily. 11/16: lexapro 5 mg daily restarted. seroquel 100/100/200 started. prazosin titration initiated at 1 mg @HS, with orders to increase by 1 mg QHS until dosing of 5 mg QHS is reached. methadone 95 mg daily continued. 11/17 continue lexapro and seroquel. 11/18/21: Add Seroquel 100 mg at night as needed if unable to sleep with Seroquel 200 mg 11/19: Increase Seroquel to 150 mg twice daily and 300 mg at bedtime I spent minutes with the patient and/or on the patient floor today, greater than?50% of which was spent counseling/coordinating care. Reason for contiued inpatient stay Substantial Risk for: harm to self
[2021-11-19] MEDS: Omeprazole 20 MG CAPSULE.DR PO (13:57)
[2021-11-19] MEDS: Acetaminophen 325 MG TABLET 650 MG PO (14:58)
[2021-11-19] MEDS: Benzocaine 20 % Oral Gel 9 GM TUBE 1 APPL MUCOUS MEM ×2 (17:34→19:56)
[2021-11-19 20:24] VITALS: BP 159/92; PULSE 92; TEMP 36.7; O2SAT 98
[2021-11-19] MEDS: hydrOXYzine HCL 50 MG TABLET PO (20:26)
[2021-11-19] MEDS: Prazosin HCL 1 MG CAPSULE 4 MG PO (20:26)
[2021-11-19] MEDS: QUEtiapine Fumarate 300 MG TABLET PO (20:26)
[2021-11-20 08:00] VITALS: BP 133/74; PULSE 112; RESP 16; TEMP 36.7; O2SAT 97
[2021-11-20] MEDS: methADONE HCl 20 MG/2 ML ORAL.CONC 95 MG PO (08:14)
[2021-11-20] MEDS: cephALEXin 500 MG CAPSULE PO ×4 (08:16→19:58)
[2021-11-20] MEDS: Omeprazole 20 MG CAPSULE.DR PO (08:16)
[2021-11-20] MEDS: Escitalopram Oxalate 5 MG TABLET PO (08:16)
[2021-11-20] MEDS: QUEtiapine Fumarate 50 MG TABLET 150 MG PO ×2 (08:16→12:49)
[2021-11-20] MEDS: Ibuprofen 800 MG TABLET PO ×2 (08:16→17:59)
[2021-11-20] MEDS: Acetaminophen 325 MG TABLET 650 MG PO (12:49)
[2021-11-20] MEDS: Benzocaine 20 % Oral Gel 9 GM TUBE 1 APPL MUCOUS MEM ×2 (12:52→18:52)
--- NOTE | 2021-11-20 16:19 | P.PNPSI_ITS ---
Subjective Subjective Date of Service: 11/20/21 Reason For Visit: depression Subjective Notes: 3 Day Interim History: overall feels mood is in a better space and much less anxious. Sleep appears to be better. Still hopeful for discharge with some frustration around being in the hospital- feels it is helpful and glad that she is back on medications. No SI. No psychosis. Participating groups. Medication Compliance: Yes Side effects from medications: No Attending Groups: Yes Review of Systems Acute medical concerns: No Review of Systems Review of Systems Unremarkable Mental Status Exam Mental Status Exam Narrative: overall pleasant. Engaged. Appropriately dressed. Fair hygiene. Organized. Less depressed. No suicidal thoughts. No HI. No agitation or psychosis. Insight and judgment fair Diagnostics Vital Signs (24Hr): Vital Signs - 24 hr 11/19/21 20:24 11/20/21 08:00 Temperature 98.1 F 98.1 F Pulse Rate 92 112 H Respiratory Rate 16 Blood Pressure 159/92 H 133/74 Pulse Oximetry 98 97 Oxygen Delivery Method Room Air Room Air BMI result Body Mass Index 25.3 Labs Results: 11/15/21 12:00 11/16/21 09:04 Medications Medications Current Medications Acetaminophen (Acetaminophen 325 Mg Tablet) 650 mg PO Q6H PRN PRN Reason: Headache/Pain Mild Scale (1-3) Last Admin: 11/20/21 12:49 Dose: 650 mg Al Hydroxide/Mg Hydroxide (Magnesium Hydrox/Alum Hydrox 30 Ml Oral.Susp) 30 ml PO Q6H PRN PRN Reason: Heartburn/Nausea Benzocaine (Benzocaine 20 % Oral Gel 9 Gm Tube) 1 appl MUCOUS MEM QID PRN PRN Reason: dentail pain Last Admin: 11/20/21 12:52 Dose: 1 appl Cephalexin HCl (Cephalexin 500 Mg Capsule) 500 mg PO QID JADEN Last Admin: 11/20/21 12:49 Dose: 500 mg Escitalopram Oxalate (Escitalopram Oxalate 5 Mg Tablet) 5 mg PO DAILY [facility] Last Admin: 11/20/21 08:16 Dose: 5 mg Hydroxyzine HCl (Hydroxyzine Hcl 50 Mg Tablet) 50 mg PO Q6H PRN PRN Reason: Anxiety Last Admin: 11/19/21 20:26 Dose: 50 mg Ibuprofen (Ibuprofen 800 Mg Tablet) 800 mg PO Q6H PRN PRN Reason: Pain, Moderate (Pain Scale 4-6 Last Admin: 11/20/21 08:16 Dose: 800 mg Magnesium Hydroxide (Milk Of Magnesia 30 Ml Oral.Susp) 30 ml PO DAILY PRN PRN Reason: Constipation Methadone HCl (Methadone Hcl 20 Mg/2 Ml Oral.Conc) 95 mg PO DAILY [facility] Last Admin: 11/20/21 08:14 Dose: 95 mg Omeprazole (Omeprazole 20 Mg Capsule.Dr) 20 mg PO DAILY@0630 [facility] Last Admin: 11/20/21 08:16 Dose: 20 mg Prazosin HCl (Prazosin Hcl 5 Mg Capsule) 5 mg PO BEDTIME [facility]; Protocol Quetiapine Fumarate (Quetiapine Fumarate 50 Mg Tablet) 50 mg PO Q4H PRN PRN Reason: agitation Last Admin: 11/19/21 16:51 Dose: 50 mg Quetiapine Fumarate (Quetiapine Fumarate 100 Mg Tablet) 100 mg PO BEDTIME PRN PRN Reason: insomnia Last Admin: 11/19/21 20:26 Dose: 100 mg Quetiapine Fumarate (Quetiapine Fumarate 300 Mg Tablet) 300 mg PO BEDTIME [facility] Last Admin: 11/19/21 20:26 Dose: 300 mg Quetiapine Fumarate (Quetiapine Fumarate 50 Mg Tablet) 150 mg PO BID@0900,1300 [facility] Last Admin: 11/20/21 12:49 Dose: 150 mg Allergies Allergies Allergy/AdvReac Type Severity Reaction Status Date / Time doxycycline Allergy Redness of Verified 09/30/20 11:47 Skin Assessment & Plan Assessment & Plan (1) Suicidal ideation: Status: Acute Code(s): R45.851 - Suicidal ideations (2) Substance abuse: Status: Acute Code(s): F19.10 - Other psychoactive substance abuse, uncomplicated (3) Chronic post-traumatic stress disorder (PTSD): Status: Acute Code(s): F43.12 - Post-traumatic stress disorder, chronic Plan restart/work back toward the following regimen: lexapro 5 daily, prazosin 5 QHS, seroquel 100/100/300, ibu 800 PRN. asking for chantix - NF, would have to bring in her own supply. continue methadone 95 mg daily. 11/16: lexapro 5 mg daily restarted. seroquel 100/100/200 started. prazosin titration initiated at 1 mg @HS, with orders to increase by 1 mg QHS until dosing of 5 mg QHS is reached. methadone 95 mg daily continued. 11/17 continue lexapro and seroquel. 11/18/21: Add Seroquel 100 mg at night as needed if unable to sleep with Seroquel 200 mg 11/19: Increase Seroquel to 150 mg twice daily and 300 mg at bedtime 11/20/2021: No changes I spent minutes with the patient and/or on the patient floor today, greater than?50% of which was spent counseling/coordinating care. Reason for contiued inpatient stay Substantial Risk for: harm to self
[2021-11-20] MEDS: QUEtiapine Fumarate 50 MG TABLET PO (17:58)
[2021-11-20] MEDS: hydrOXYzine HCL 50 MG TABLET PO (19:58)
[2021-11-20] MEDS: QUEtiapine Fumarate 300 MG TABLET PO (19:58)
[2021-11-20] MEDS: Prazosin HCL 5 MG CAPSULE PO (20:15)
[2021-11-20 20:28] VITALS: BP 112/55; PULSE 88; RESP 18; TEMP 37.1; O2SAT 98
[2021-11-20] MEDS: QUEtiapine Fumarate 100 MG TABLET PO (21:07)
[2021-11-21] MEDS: QUEtiapine Fumarate 50 MG TABLET PO (04:07)
[2021-11-21] MEDS: Ibuprofen 800 MG TABLET PO (04:07)
[2021-11-21] MEDS: cephALEXin 500 MG CAPSULE PO ×2 (07:47→13:58)
[2021-11-21] MEDS: QUEtiapine Fumarate 50 MG TABLET 150 MG PO ×2 (07:47→13:58)
[2021-11-21] MEDS: Omeprazole 20 MG CAPSULE.DR PO (07:47)
[2021-11-21] MEDS: Escitalopram Oxalate 5 MG TABLET PO (07:47)
[2021-11-21] MEDS: methADONE HCl 20 MG/2 ML ORAL.CONC 95 MG PO (07:48)
[2021-11-21 07:53] VITALS: BP 135/75; PULSE 108; RESP 20; TEMP 36.7; O2SAT 96
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
[2021-11-21 11:57] LABS: Appearance Urine CLEAR; Color Urine YELLOW; Glucose Urine UA NEG (NEG); Leukocyte Esterase Urine 2+ (NEG); Nitrite Urine NEG (NEG); PH 5.5 (5.0-8.0); Specific Gravity - Urine 1.015 (1.005-1.025); UACC Culture Trigger YES; Urine Blood NEG (NEG); Urine Ketones NEG (NEG); Urine Protein NEG (NEG-TRACE)
[2021-11-21 12:19] LABS: Bacteria Urine 1+ /LPF; RBC Urine 0 /HPF (0); Squamous Epithelial Cell Urine 4+ /LPF
--- NOTE | 2021-11-21 13:23 | PC.NURSE ---
Kamini is alert, fully oriented, pleasant and cooperative with care. She denies ideation, plan or intent to harm self or others. She verbalizes understanding of medications at discharge and upcoming appointments. She is currently receiving antibiotic treatment for UTI. She denies other physical complaint.
== END 2021-11-21 15:00 | disposition home or self-care (01) | DRG 755 ==
LOC: HO.ED 14:11 → HO.PADLT16 18:53
PROVIDERS: Physician Assistant; Social Worker; Admitting Provider Psychiatry & Neurology Psychiatry; Emergency Provider Emergency Medicine; Visit Provider Psychiatry & Neurology Psychiatry
DX: F43.12 Post-traumatic stress disorder, chronic (principal); R45.851 Suicidal ideations; F11.20 Opioid dependence, uncomplicated; F17.210 Nicotine dependence, cigarettes, uncomplicated; Z71.6 Tobacco abuse counseling; Z91.51 Personal history of suicidal behavior; Z20.822 Contact with and (suspected) exposure to COVID-19; Z59.02 Unsheltered homelessness; Z79.899 Other long term (current) drug therapy
CPT/HCPCS: 36415; 80048; 80053; 80061; 80076; 80307; 81001; 81025; 82607; 82746; 83735; 84443; 85025; 87086; 87635; 93005; 99285

== ENCOUNTER 2022-01-08 10:51 | Inpatient (IN) | payer MEDICAID, SELFPAY ==
--- NOTE | ~2022-01-08 | XR_ITS ---
EXAMINATION: XR HAND, RIGHT CLINICAL INFORMATION: Injected cocaine and hand. Painful swollen. COMPARISON: None TECHNIQUE: PA, lateral, and oblique views of the right hand. FINDINGS: There is a calcified lesion deep in the palmar and adjacent of proximal fourth metacarpal. There is mild dorsal hand soft tissue swelling. No visible bony fracture, dislocation or periosteal thickening. XR/XR hand RT 2V IMPRESSION: Calcified lesion/injection granuloma palmar aspect anterior to proximal fourth metacarpal with moderate dorsal hand soft tissue swelling. Further evaluation with CT with contrast is recommended.
--- NOTE | ~2022-01-08 | US_ITS ---
EXAMINATION: DUPLEX VENOUS ULTRASOUND OF THE RIGHT UPPER EXTREMITY. CLINICAL HISTORY: Right arm swelling COMPARISON: None. TECHNIQUE: Grayscale, color and Doppler ultrasound of the deep veins of the right upper extremity were performed. FINDINGS: The right internal jugular, subclavian and axillary veins demonstrate normal color Doppler flow suggesting patency. The right brachial, basilic and cephalic veins are easily compressible and demonstrate normal color Doppler flow suggesting patency. The right radial and ulnar veins are easily compressible and demonstrate normal color Doppler flow suggesting patency. There is a mildly enlarged lymph node on the right clavicular region which measures 1.6 cm in maximum transverse dimension. There are a few mildly enlarged lymph nodes within the right axilla, largest measuring 1.9 cm in maximum transverse dimension. US/US venous duplex UE RT IMPRESSION: -No thrombus identified within the veins of the right upper extremity. -Mildly enlarged lymph nodes demonstrated within the right clavicular and right axillary regions. These are nonspecific. Clinical correlation recommended. Follow-up imaging can be obtained as clinically indicated.
--- NOTE | ~2022-01-08 | CT_ITS ---
EXAMINATION: CT HAND WITHOUT CONTRAST, RIGHT CLINICAL INFORMATION: Possible abscess. Low suspicion tenosynovitis. COMPARISON: Right hand radiographs performed earlier the same date. TECHNIQUE: Axial images were obtained through the right distal forearm, wrist and hand without the administration of intravenous contrast. Coronal and sagittal reformatted images were generated. This CT examination was performed using dose optimization techniques as appropriate, variously including the following: *Automated exposure control *Adjustment of mA and/or kV according to patient size (this includes techniques or standardized protocols for targeted exams where dose is matched to indication/reason for exam; i.e. extremities or head) *Use of iterative reconstruction technique DLP: 119 mGy-cm FINDINGS: There is diffuse subcutaneous edema/stranding and coalescent subcutaneous fluid along the dorsal aspect of the distal forearm and hand. No appreciable loculated fluid collection. No tracking soft tissue gas. No evidence of extensor or flexor tenosynovial fluid/tenosynovitis. No acute fracture or dislocation. No osseous destructive change or periostitis. No joint effusions identified. Heterotopic ossification in the palmar base of the hand underlying the proximal fourth metacarpal compatible with sequela of a remote soft tissue injury. CT/CT hand RT wo con IMPRESSION: 1. Diffuse dorsal subcutaneous edema. Correlate with evidence of cellulitis on exam. No tracking soft tissue gas. 2. No loculated fluid collection to suggest abscess. No radiodense foreign body. 3. No evidence of tenosynovitis or appreciable joint effusions.
[2022-01-08 11:04] VITALS: BP 142/87; PULSE 108; RESP 18; TEMP 37.3; O2SAT 98; BMI 25.7
[2022-01-08 14:20] VITALS: BP 160/50; PULSE 114; RESP 19; TEMP 38.3; O2SAT 98
[2022-01-08] MEDS: Ibuprofen 600 MG TABLET PO ×2 (14:24→21:44)
[2022-01-08] MEDS: Acetaminophen 325 MG TABLET 975 MG PO (14:24)
[2022-01-08 14:50] LABS: COVID-19 Test Negative (Negative); IDNOW Serial# 16C4AD1C
--- NOTE | 2022-01-08 20:04 | ED.GENADULT ---
HPI - General Adult General Chief complaint: Wound/Laceration Stated complaint: Infection R hand Time Seen by Provider: 01/08/22 11:19 Source: patient Mode of arrival: ambulatory Limitations: no limitations History of Present Illness HPI narrative: Patient comes to the emergency room complaining of right hand pain and swelling. Patient states that she injected cocaine 2 days ago, since then, her hand has become and swollen and very painful. Complaining of chills. Related Data Home Medications Medication Instructions Recorded Confirmed methadone 95 mg PO DAILY 11/15/21 11/15/21 Previous Rx's Medication Instructions Recorded ibuprofen 800 mg tablet 800 mg PO Q6H PRN pain #30 tabs 11/03/21 benzocaine 20 % mucosal gel 1 appl mucous membrane QID PRN 11/21/21 (Anbesol (benzocaine) Maximum dentail pain 30 days #100 grams Strength) escitalopram oxalate 5 mg tablet 5 mg PO DAILY 30 days #30 tabs 11/21/21 (Lexapro) levofloxacin 750 mg tablet 750 mg PO DAILY 7 days #7 tabs 11/21/21 omeprazole 20 mg capsule,delayed 20 mg PO DAILY@0630 30 days #30 11/21/21 release caps prazosin 5 mg capsule 5 mg PO BEDTIME 30 days #30 caps 11/21/21 quetiapine 300 mg tablet 300 mg PO BEDTIME 30 days #30 tabs 11/21/21 quetiapine 50 mg tablet 150 mg PO BID@0900,1300 30 days 11/21/21 #180 tabs Allergies Allergy/AdvReac Type Severity Reaction Status Date / Time doxycycline Allergy Redness of Verified 09/30/20 11:47 Skin Review of Systems Review of Systems: Constitutional : No Weight loss, No Fever, No Chills, No Night Sweats, No Fatigue, No Malaise ENT/Mouth : No Hearing loss, No Ear Pain, No Nasal Congestion, No Sinus Pain, No Hoarseness, No sore throat, No Rhinorrhea, No Swallowing Difficulty Eyes: No Eye Pain, No Swelling, No Redness, No Foreign Body, No Discharge, No Vision Changes Cardiovascular : No Chest Pain, No SOB, No Dyspnea on Exertion, No Orthopnea, No Edema, No Palpitations Respiratory : No Cough, No Sputum, No Wheezing, No Smoke Exposure, No Dyspnea Gastrointestinal : No Nausea, No Vomiting, No Diarrhea, No Constipation, No abdominal Pain, No Hematochezia, No Melena Genitourinary : no irregular bleeding, No Dysuria, No Urinary Frequency, No Hematuria, No Urinary Incontinence, No Urgency, No Flank Pain, No Urinary Flow Changes, No Hesitancy Musculoskeletal : No joint pain, No Myalgias, No Joint Swelling Skin : Complaining of right hand infection in the dorsum of the hand after injecting cocaine 2 days ago Neuro : No Weakness, No Numbness, No Paresthesias, No Loss of Consciousness, No Dizziness, No Headache Psych : No Anxiety/Panic, No Depression, No SI/HI/AH/VH, No Social Issues, Heme/Lymph: No Bruising, No Bleeding,No Lymphadenopathy Endocrine : No Polyuria, No Polydipsia, No Temperature Intolerance PMF Past Medical History Medical History Chronic post-traumatic stress disorder (PTSD) Degenerative arthritis Diverticula of intestine Endometriosis Mood disorder Opioid dependence Post traumatic stress disorder (PTSD) Substance abuse Surgical History History of appendectomy History of delivery History of lumpectomy of right breast Social History Social History (Updated 11/15/21 @ 07:27 by Ruby Spangler DO) Household Members: None Housing: Homeless Do you presently have visiting nurse or other home services: No Patient Tobacco Use Status: Current everyday Tobacco user Tobacco use type: Cigarette Cigarette Packs Per Day: 0.5 Cigarettes Per Day: 10.0 Years Smoked: since I was 12 e-Cigarette/Vaping Use: Never Used Second Hand Smoke Exposure: Yes Substance Use Type: Crack/Cocaine Advance Directives: No Advance Directives Information Provided: No service: No Sexual orientation: Don't Know Physical Exam ED Vital Signs: Vital Signs - 24 hr 01/08/22 11:04 01/08/22 14:20 Temperature 99.2 F 100.9 F H Pulse Rate 108 H 114 H Respiratory Rate 18 19 Blood Pressure 142/87 H 160/50 H Pulse Oximetry 98 98 Oxygen Delivery Method Room Air Room Air BMI result Body Mass Index 25.7 Const Other: Appearance: Alert. Oriented X3. No acute distress. Eyes: Pupils equal, round and reactive to light. ENT: Pharynx normal. Neck: Normal inspection. Neck supple. No lymph nodes noted. No crepitus CVS: Normal heart rate and rhythm. Pulses normal. Normal S1 and S2. Patient has loud +3 left sternal border systolic murmur Respiratory: No respiratory distress. Breath sounds normal. No Wheezing. No rales Abdomen: Soft and nontender. No rigidity. No distention. Skin: Skin warm and dry. Normal skin color. Normal skin turgor. Extremities: No lower extremity edema. Right hand dorsum is erythematous, swollen, painful to touch. Patient is able to flex and extend all fingers and oppose the cough. Tenosynovitis not suspected. Neuro: Oriented X 3. No motor deficit. No sensory deficit. Moving all extremities. No slurred speech. CN 2 through 12 grossly intact Psych: calm, cooperative, normal affect Course Course Course Narrative: Patient's labs are pending. Patient is a difficult stick. CT scan of the hand pending. Patient states that he needs to be admitted, she is willing to stay. When the patient's nurse was trying to insert an IV line, he got accidentally poked by the patient. Patient consented for HIV and hepatitis testing. I was able to insert a right internal jugular line. all Of patient's labs are pending CT scan of the hand shows diffuse dorsal subcutaneous edema, no soft tissue gas, no fluid collection, no evidence of tenosynovitis Sign out given to Dr. Alegria Medical Decision Making Lab Data Labs: Lab Results 01/08/22 Range/Units 14:26 COVID-19 ([facility]) Negative (Negative) COVID-19 Clin Com See Note Imaging Data CT of the hand: Radiologist's impression: FINDINGS: There is diffuse subcutaneous edema/stranding and coalescent subcutaneous fluid along the dorsal aspect of the distal forearm and hand. No appreciable loculated fluid collection. No tracking soft tissue gas. No evidence of extensor or flexor tenosynovial fluid/tenosynovitis. No acute fracture or dislocation. No osseous destructive change or periostitis. No joint effusions identified. Heterotopic ossification in the palmar base of the hand underlying the proximal fourth metacarpal compatible with sequela of a remote soft tissue injury.? CT/CT hand RT wo con IMPRESSION: ? 1. Diffuse dorsal subcutaneous edema. Correlate with evidence of cellulitis on exam. No tracking soft tissue gas. 2. No loculated fluid collection to suggest abscess. No radiodense foreign body. 3. No evidence of tenosynovitis or appreciable joint effusions. Discharge Plan Discharge Clinical Impression: Cellulitis of hand, Newly recognized heart murmur Patient Disposition: Still a Patient Prescriptions: No Action ibuprofen 800 mg tablet 800 mg PO Q6H PRN (Reason: pain) Qty: 30 0RF methadone 95 mg PO DAILY quetiapine 300 mg Tablet 300 mg PO BEDTIME 30 Days Qty: 30 0RF omeprazole 20 mg Capsule,Delayed Release(Dr/Ec) 20 mg PO DAILY@0630 30 Days Qty: 30 0RF Anbesol (benzocaine) Max Str 20 % Gel 1 appl mucous membrane QID PRN (Reason: dentail pain) 30 Days Qty: 100 0RF quetiapine 50 mg Tablet 150 mg PO BID@0900,1300 30 Days Qty: 180 0RF prazosin 5 mg capsule 5 mg PO BEDTIME 30 Days Qty: 30 0RF escitalopram oxalate [Lexapro] 5 mg tablet 5 mg PO DAILY 30 Days Qty: 30 0RF levofloxacin 750 mg tablet 750 mg PO DAILY 7 Days Qty: 7 0RF
--- NOTE | 2022-01-08 20:40 | PC.NURSE ---
This RN was assisting Dr. Jorge with the insertion of an EJ. After the needle was inserted into the vein and removed from the catheter, I went to connect the vacutainer when I was poked in the left thumb with the needle that Dr. Jorge was holding in his hand. Small puncture wound was evident on the left thumb that was draining blood. Charge nurse informed.
[2022-01-08 21:19] LABS: Basophils Percent Auto 0.2 % (0-2); Eosinophils Percent Auto 0.3 % (0-4); Hematocrit 33.1 % (37.0-47.0); Hemoglobin 10.9 g/dl (12.0-16.0); Imm Gran Abs Auto 0.07 X10*3/uL (0.00-0.03); Imm Gran Pct Auto 0.5 % (0.0-0.4); Lymphocytes Absolute Auto 0.9 X10*3/uL (1.2-4.9); Lymphocytes Percent Auto 6.4 % (20-40); MANUAL DIFF FLAG NO; Mean Corpuscular HGB Conc 32.9 g/dl (31.0-35.0); Mean Corpuscular Hemoglobin 28.2 pg (27.0-33.0); Mean Corpuscular Volume 85.5 fL (80.0-98.0); Mean Platelet Volume 10.8 fL (9.4-12.3); Monocytes Absolute Auto 1.4 X10*3/uL (0.1-1.2); Monocytes Percent Auto 9.4 % (2-11); Neutrophils Percent Auto 83.2 % (45-73); Platelet Count 291 X10*3/uL (160-400); Red Blood Count 3.87 X10*6/uL (4.20-5.50); Red Cell Distribution Width 13.4 % (11.0-16.0); White Blood Count 14.4 X10*3/uL (4.8-10.8)
[2022-01-08 21:37] LABS: Anion Gap 13 (12-20); Blood Urea Nitrogen 12 mg/dL (9-16); Calcium 8.7 mg/dL (8.4-10.2); Carbon Dioxide 26 mmol/L (22-29); Chloride 101 mmol/L (96-108); Creatinine Clr Calc Pharmacy 104.2; Estimated Glomerular Filt Rate > 60; Glucose Random 115 mg/dL (60-115); Potassium 3.3 mmol/L (3.3-5.1); Sodium 137 mmol/L (135-145)
[2022-01-08] MEDS: 0.9 % Sodium Chloride 1,000 ML 999 ML IVCONT (21:44)
[2022-01-08] MEDS: Piperacillin Sodium/Tazobactam 3.375 GM in 0.9 % Sodium Chloride 50 ML IV (21:44)
[2022-01-08 21:57] LABS: HIV AB/AG Nonreactive (Nonreactive)
--- NOTE | 2022-01-08 22:04 | PHA.MEDREC ---
Pharmacy Consult ? Medication Reconciliation Pharmacy has completed the medication reconciliation. Went down to see patient, patient was very drowsy in bed. Patient muttered to me that she takes to medications at home. When I explained there was some claim history, she told me I dont take anything at home, go away . Left note for pharmacist to retry in AM.
--- NOTE | 2022-01-08 22:32 | P.HPHOSP_ITS ---
History of Present Illness Date of Service: 01/08/22 Chief Complaint: right hand swelling 37-year-old female past medical history of IV drug use, PTSD, who presents to the hospital with complaints of right hand swelling and pain. Patient is pretty lethargic but arousable and answers questions appropriately. Patient noticed her hand swollen for the past 2 days, reports pain that is severe, significant swelling, and redness. Patient reports injecting cocaine in the same arm, denies any fever or chills, no nausea or vomiting, no abdominal pain, no diarrhea constipation, no urinary symptoms. On arrival to the ED patient's vitals are significant for temp of a 100.9 degrees, heart rate of 108, blood pressure stable satting 98% on room air Labs are significant for WBC count of 14.4, hemoglobin of 10.9, hematocrit 33.1, labs otherwise unremarkable, hand CT shows diffuse dorsal subcutaneous edema, no tracking soft tissue gas, no loculated fluid collection to suggest abscess, no radiodense foreign body, no evidence of tenosynovitis or joint effusion also noted to have a new heart murmur that was not present in the past according to the patient. Review of Systems Review of Systems: Yes all other systems are reviewed and are negative [facility] Medical History (Updated 01/09/22 @ 06:14 by Yojana Anguiano MD) Chronic post-traumatic stress disorder (PTSD) Degenerative arthritis Diverticula of intestine Endometriosis Mood disorder Opioid dependence Post traumatic stress disorder (PTSD) Substance abuse Pertinent family history: no past family history of CAD Surgical History History of appendectomy History of delivery History of lumpectomy of right breast Social History Household Members: None Housing: Homeless Do you presently have visiting nurse or other home services: No Patient Tobacco Use Status: Current everyday Tobacco user Tobacco use type: Cigarette Cigarette Packs Per Day: 0.5 Cigarettes Per Day: 10.0 Years Smoked: since I was 12 e-Cigarette/Vaping Use: Never Used Second Hand Smoke Exposure: Yes Substance Use Type: Crack/Cocaine Advance Directives: No Advance Directives Information Provided: No service: No Sexual orientation: Don't Know Meds Allergies Allergy/AdvReac Type Severity Reaction Status Date / Time doxycycline Allergy Redness of Verified 09/30/20 11:47 Skin Active Medications: Current Medications Pharmacy Consult (Consult Rx Vancomycin Dosing) 1 each MISCELLANE DAILY PRN PRN Reason: Consult order Pharmacy Consult (Consult Rx Perform Med Rec) 1 each MISCELLANE ONCE PRN PRN Reason: Consult order Physical Exam Vital Signs and Narrative: Vital Signs: Last Vital Signs Temp 100.9 F H 01/08/22 14:20 Pulse 114 H 01/08/22 14:20 Resp 19 01/08/22 14:20 BP 160/50 H 01/08/22 14:20 Pulse Ox 98 01/08/22 14:20 O2 Del Method 01/08/22 14:20 BMI result Body Mass Index 25.7 Const: Other: somnolent but arousable General: cooperative and no acute distress Eyes: General: appearance normal, both eyes and all related structures Resp: Effort & Inspection: normal respiratory effort Auscultation: clear to auscultation bilaterally Cardio: Other: 2/6 murmur heard at the left sternal border region Rate: regular rate Rhythm: regular rhythm GI: Palpation (GI): Soft to palpation Auscultation: normal bowel sounds Skin: General skin exam: no rashes or lesions noted Neuro: Cognition (Neuro): normal cognition Extrem: Other: significant edema and tenderness on palpation of the right hand, mild erythema as compared to the left hand General: Yes no pedal edema Results Labs CBC and Chem 7: 01/09/22 05:25 01/09/22 05:25 Labs: Laboratory Results - last 24 hr 01/08/22 01/08/22 01/08/22 11:09 14:26 21:05 MCV 85.5 MCH 28.2 MCHC 32.9 RDW 13.4 Plt Count 291 MPV 10.8 Immature Gran % (Auto) 0.5 H Neut % (Auto) 83.2 H Lymph % (Auto) 6.4 L [place] % (Auto) 9.4 Eos % (Auto) 0.3 Baso % (Auto) 0.2 Lymph # (Auto) 0.9 L [place] # (Auto) 1.4 H Eos # (Auto) 0.0 Baso # (Auto) 0.0 Abs Immat Gran (auto) 0.07 H Absolute Neuts (auto) 12.0 H Absolute Nucleated RBC 0.000 Nucleated RBC % (auto) 0.0 Anion Gap 13 Estim Creat Clear Calc 104.2 Estimated GFR > 60 Random Glucose 115 Lactic Acid Calcium 8.7 COVID-19 ([facility]) Negative COVID-19 Clin Com See Note 01/08/22 21:05 MCV MCH MCHC RDW Plt Count MPV Immature Gran % (Auto) Neut % (Auto) Lymph % (Auto) [place] % (Auto) Eos % (Auto) Baso % (Auto) Lymph # (Auto) [place] # (Auto) Eos # (Auto) Baso # (Auto) Abs Immat Gran (auto) Absolute Neuts (auto) Absolute Nucleated RBC Nucleated RBC % (auto) Anion Gap Estim Creat Clear Calc Estimated GFR Random Glucose Lactic Acid 1.0 Calcium COVID-19 ([facility]) COVID-19 Clin Com Imaging Radiologist's Impressions: Impressions Hand X-Ray 01/08/22 12:00 IMPRESSION: Calcified lesion/injection granuloma palmar aspect anterior to proximal fourth metacarpal with moderate dorsal hand soft tissue swelling. Further evaluation with CT with contrast is recommended. Hand CT 01/08/22 20:32 IMPRESSION: 1. Diffuse dorsal subcutaneous edema. Correlate with evidence of cellulitis on exam. No tracking soft tissue gas. 2. No loculated fluid collection to suggest abscess. No radiodense foreign body. 3. No evidence of tenosynovitis or appreciable joint effusions. Assessment and Plan (1) Sepsis: Status: Acute (2) Cellulitis of hand: Status: Acute (3) Newly recognized heart murmur: Status: Acute (4) Substance abuse: Status: Acute Plan 37-year-old female with past medical history of IV drug use presents to the hospital with complaints of swelling of right hand found to have right hand cellulitis and new heart murmur # sepsis - has leukocytosis, febrile, tachycardia - likely secondary to cellulitis of the right hands versus endocarditis cannot be ruled out - has no elevated lactic acidosis, no hypotension - treated with IV antibiotics - follow cultures # right hand cellulitis - erythema, edema, significant tenderness in the setting of IV drug injection in that same hand - no evidence of abscess on CT, no evidence of tenosynovitis - will start on broad-spectrum IV antibiotics - follow cultures # new heart murmur - likely endocarditis - will obtain echocardiogram, cardiology consult, continues broad-spectrum IV antibiotics - follow cultures # IV drug use - care team consulted DVT profile: Lovenox given need for IV antibiotics in the setting of sepsis and cellulitis as well as possible endocarditis patient will require minimal 2 night hospital stay for reasons mentioned Quality Stroke Does the patient have a stroke diagnosis?: No VTE Prior VTE?: No VTE Risk Level:: Medical - moderate - high VTE Device Contraindication: Treatment Not Indicated VTE Drug Contraindication: N/A - Med Ordered
[2022-01-08] MEDS: vancomycin HCL 1,000 MG, vancomycin HCL 750 MG in 0.9 % Sodium Chloride 500 ML 267.5 MG IV (22:36)
--- NOTE | 2022-01-08 22:51 | PHA.PROG ---
Admission Date/Time:01/08 Indication: SKIN AND SOFT TISSUE Weight in k.039 kg Adjusted body weight in K KG [place] body weight in K.7 KG Obesity Dosing Indication % IBW : NOT OBESE Serum Creatinine - Last 168 Hours 01/08/22 21:05 Creatinine 0.70 Estimated CrCl and GFR - Last 168 Hours 01/08/22 21:05 Estim Creat Clear Calc 104.2 Estimated GFR > 60 Vancomycin Loading Dose: 1750MG Current Vancomycin Dosing Regimen: 1000MG q12 Vancomycin Monitoring using AUC goal of 400 - 600 range with trough as surrogate marker 448MG/L/HR Date and Time for next Vancomycin Level to be drawn: 01/10 @0900 Pharmacist Comments on Vancomycin Plan: Patient is younger than 65 and has good renal function. Q12 hour regimen is chosen. Patient has a skin and soft tissue infection. Predicted AUC is 448mg/L/hr. Will continue to monitor renal function. Level to be pulled 01/10 @0900. Will adjust dose if needed. Vancomycin dosing will take advantage of [employer] as a clinical decision support tool that uses Bayesian modeling to calculate individual patient's pharmacokinetic parameters and forecast the patient's drug concentration time course with the target goal AUC 24 range of 400 - 600 mg/L/hr.
[2022-01-09] VITALS: BP 109/57; PULSE 81; O2SAT 94
[2022-01-09] MEDS: Enoxaparin Sodium 40 MG/0.4 ML SYRINGE SUBCUT ×2 (01:01→22:43)
[2022-01-09 02:37] LABS: Alanine Aminotransferase 10 U/L (0-31); Albumin Level 3.5 g/dL (3.5-5.0); Alkaline Phosphatase 61 U/L (39-117); Aspartate Amino Transferase 13 U/L (5-31); Bilirubin Direct 0.3 mg/dL (0.0-0.5); Bilirubin Total 0.7 mg/dL (0.0-1.0); Total Protein 6.3 g/dL (6.5-8.0)
[2022-01-09 03:05] LABS: Amylase 36 U/L (28-100)
--- NOTE | 2022-01-09 03:39 | PC.NURSE ---
Med rec completed. Pt denies taking any at home meds.
[2022-01-09 05:01] VITALS: TEMP 39.6
--- NOTE | 2022-01-09 05:04 | PC.NURSE ---
Reported to Dr. Anguiano fever 103.3. Per MD administer PRN Tylenol
[2022-01-09] MEDS: Acetaminophen 325 MG TABLET 650 MG PO ×3 (05:10→22:43)
--- NOTE | 2022-01-09 05:10 | PC.NURSE ---
Pt removed IV from right EJ while sleeping. This RN will attempt to regain access using US visualization.
[2022-01-09] MEDS: Piperacillin Sodium/Tazobactam 3.375 GM in 0.9 % Sodium Chloride 50 ML IV ×4 (05:30→22:11)
[2022-01-09 05:31] LABS: Basophils Absolute Auto 0.1 X10*3/uL (0.0-0.2); Basophils Percent Auto 0.4 % (0-2); Eosinophils Percent Auto 0.1 % (0-4); Hematocrit 32.1 % (37.0-47.0); Hemoglobin 10.5 g/dl (12.0-16.0); Imm Gran Abs Auto 0.12 X10*3/uL (0.00-0.03); Imm Gran Pct Auto 0.9 % (0.0-0.4); Lymphocytes Absolute Auto 1.2 X10*3/uL (1.2-4.9); MANUAL DIFF FLAG NO; Mean Corpuscular HGB Conc 32.7 g/dl (31.0-35.0); Mean Corpuscular Hemoglobin 28.4 pg (27.0-33.0); Mean Corpuscular Volume 86.8 fL (80.0-98.0); Mean Platelet Volume 10.2 fL (9.4-12.3); Monocytes Absolute Auto 1.3 X10*3/uL (0.1-1.2); Monocytes Percent Auto 9.5 % (2-11); Neutrophils Absolute Auto 10.8 x10*3/uL (2.0-8.3); Neutrophils Percent Auto 80.1 % (45-73); Platelet Count 239 X10*3/uL (160-400); Red Cell Distribution Width 13.5 % (11.0-16.0); White Blood Count 13.5 X10*3/uL (4.8-10.8)
[2022-01-09 05:42] LABS: Lactic Acid 0.7 mmol/L (0.5-2.0)
[2022-01-09 05:48] LABS: Anion Gap 13 (12-20); Blood Urea Nitrogen 11 mg/dL (9-16); Calcium 7.7 mg/dL (8.4-10.2); Carbon Dioxide 25 mmol/L (22-29); Chloride 104 mmol/L (96-108); Creatinine Clr Calc Pharmacy 105.7; Estimated Glomerular Filt Rate > 60; Glucose Random 92 mg/dL (60-115); Potassium 3.3 mmol/L (3.3-5.1); Sodium 139 mmol/L (135-145)
[2022-01-09 08:10] LABS: HBS Num1 9.04 mIU/mL (0-7.99); HBc Num1 0.07 S/CO (0.00-0.79); HBsAGNum1 0.23 S/CO (0.00-0.99); HIV Num 1 0.07 S/CO (0.00-0.99); Hepatitis B Core Antibody Nonreactive (Nonreactive); Hepatitis B Surface Antigen Negative (Negative); ~Hepatitis C Antibody Reactive (Nonreactive)
[2022-01-09 08:13] VITALS: BP 105/66; PULSE 78; RESP 20; TEMP 37.1; O2SAT 98
[2022-01-09] MEDS: 0.9 % Sodium Chloride Flush 3 ML SYRINGE IVFLUSH ×2 (08:37→15:46)
--- NOTE | 2022-01-09 09:43 | HE.PHANOTE ---
RE MED REC PATIENT REFUSED TO TALK TO ME, SAYS THEY TAKE NOTHING. WAS ON METHADONE LAST ADMISSION, PATIENT FELL ASLEEP DURING CONVERSATION VERENA
--- NOTE | 2022-01-09 10:01 | MHC.CM.PN ---
CM attempted to meet with Patient in the ED but she was sleeping soundly. CM left a detailed message for Contact/Friend/Delicia @ [phone] and await a return call. From chart review only, Patient appears to be homeless and to have received J&J/Covid vax only. Patient has a history of IVDA,SI,Opioid Use, PTSD and may benefit from a Care Team Consult. Home vs Care Team interventions is the tentative plan for now and CM has initiated and will follow for dc planning.
[2022-01-09 10:16] LABS: HBS Num2 7.85 mIU/mL (0-7.99); HBS Num3 7.96 mIU/mL (0-7.99); ~Hepatitis B Surface Antibody NONREACTIVE (Nonreactive)
[2022-01-09] MEDS: methADONE HCl 20 MG/2 ML ORAL.CONC PO (10:48)
[2022-01-09] MEDS: vancomycin HCL 1,000 MG in 0.9 % Sodium Chloride 250 ML 270 MG IV (10:51)
[2022-01-09 11:02] VITALS: BP 111/63; PULSE 94; RESP 19; TEMP 37.1; O2SAT 96
--- NOTE | 2022-01-09 11:02 | MHC.RECOVRN ---
Briefly met with pt in ED5 to assess for opioid withdrawal. Pt reports using heroin, IV, 3-4 bags daily as well as cocaine, IV, a lot. Denies other substances. Pt reports having been receiving methadone a couple months ago, 95 mg daily. Pt would like to utilize methadone while inpatient, unsure if she would like to reestablish care with an OTP. At this time, pt is experiencing withdrawal symptoms including restlessness, body aches, stomach cramps and irritability. Discussed with Rose Caro APRN. Plan to administer 20 mg methadone now. Will continue to follow.
--- NOTE | 2022-01-09 14:57 | P.PNIM_ITS ---
Subjective Subjective Date of Service: 01/09/22 Interval History: Somnolent but arousable Complaining of right hand pain, denies fever chills, no acute events since admission, denies chest pain no palpitations. 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 Neck no JVD. CVS regular rate rhythm, systolic Respiratory lungs clear to auscultation, no respiratory distress, no wheeze, no rhonchi. Gastrointestinal abdomen soft, nontender, bowel sounds audible, no guarding , no rigidity. Extremities right upper extremity swollen, positive erythema extending towards forearm Neuro speech clear, moving all 4 extremities. Objective Data Active Medications Acetaminophen (Acetaminophen 325 Mg Tablet) 650 mg PO Q6H PRN PRN Reason: Pain, Mild (Pain Scale 1-3) Last Admin: 01/09/22 10:54 Dose: 650 mg Documented By: LEONILA Docusate Sodium (Docusate Sodium 100 Mg Capsule) 100 mg PO DAILY PRN PRN Reason: Constipation Enoxaparin Sodium (Enoxaparin Sodium 40 Mg/0.4 Ml Syringe) 40 mg SUBCUT Q24H [facility] Last Admin: 01/09/22 01:01 Dose: 40 mg Documented By: HANNAH Piperacillin Sod/Tazobactam (Sod 3.375 gm/ Sodium Chloride) 50 mls @ 100 mls/hr IV Q6H [facility] Last Infusion: 01/09/22 10:29 Dose: 0 mls/hr Documented By: LEONILA Vancomycin HCl 1,000 mg/ (Sodium Chloride) 270 mls @ 270 mls/hr IV Q12H [facility] Last Admin: 01/09/22 10:51 Dose: 270 mls/hr Documented By: LEONILA Methadone HCl (Methadone Hcl 20 Mg/2 Ml Oral.Conc) 20 mg PO DAILY [facility] Last Admin: 01/09/22 10:48 Dose: 20 mg Documented By: LEONILA Ondansetron HCl (Ondansetron Hcl 4 Mg/2 Ml Vial) 4 mg IVPUSH Q8H PRN PRN Reason: Nausea and Vomiting Pharmacy Consult (Consult Rx Vancomycin Dosing) 1 each MISCELLANE DAILY PRN PRN Reason: Consult order Pharmacy Consult (Consult Rx Perform Med Rec) 1 each MISCELLANE ONCE PRN PRN Reason: Consult order Pharmacy Consult (Consult Rx Vancomycin Dosing) 1 each MISCELLANE DAILY PRN PRN Reason: Consult order Sodium Chloride (0.9 % Sodium Chloride Flush 3 Ml Syringe) 3 ml IVFLUSH QSHIFT [facility] Last Admin: 01/09/22 08:37 Dose: 3 ml Documented By: LEONILA Labs CBC & Chem 7: 01/09/22 05:25 01/09/22 05:25 Labs: Laboratory Results - last 24 hr 01/08/22 01/08/22 01/08/22 11:09 21:05 21:05 MCV 85.5 MCH 28.2 MCHC 32.9 RDW 13.4 Plt Count 291 MPV 10.8 Immature Gran % (Auto) 0.5 H Neut % (Auto) 83.2 H Lymph % (Auto) 6.4 L [place] % (Auto) 9.4 Eos % (Auto) 0.3 Baso % (Auto) 0.2 Lymph # (Auto) 0.9 L [place] # (Auto) 1.4 H Eos # (Auto) 0.0 Baso # (Auto) 0.0 Abs Immat Gran (auto) 0.07 H Absolute Neuts (auto) 12.0 H Absolute Nucleated RBC 0.000 Nucleated RBC % (auto) 0.0 Anion Gap 13 Estim Creat Clear Calc 104.2 Estimated GFR > 60 Random Glucose 115 Lactic Acid 1.0 Calcium 8.7 Total Bilirubin 0.7 Direct Bilirubin 0.3 AST 13 ALT 10 Alkaline Phosphatase 61 Total Protein 6.3 L Albumin 3.5 Amylase 36 Hep Bs Antigen Hep Bs Antibody Hep B Core Total Ab Hepatitis C Ab (EIA) HIV 1&2 Ab/P24 Ag 4thGn 01/08/22 01/09/22 01/09/22 21:05 05:25 05:25 MCV 86.8 MCH 28.4 MCHC 32.7 RDW 13.5 Plt Count 239 MPV 10.2 Immature Gran % (Auto) 0.9 H Neut % (Auto) 80.1 H Lymph % (Auto) 9.0 L [place] % (Auto) 9.5 Eos % (Auto) 0.1 Baso % (Auto) 0.4 Lymph # (Auto) 1.2 [place] # (Auto) 1.3 H Eos # (Auto) 0.0 Baso # (Auto) 0.1 Abs Immat Gran (auto) 0.12 H Absolute Neuts (auto) 10.8 H Absolute Nucleated RBC 0.000 Nucleated RBC % (auto) 0.0 Anion Gap 13 Estim Creat Clear Calc 105.7 Estimated GFR > 60 Random Glucose 92 Lactic Acid Calcium 7.7 L D Total Bilirubin Direct Bilirubin AST ALT Alkaline Phosphatase Total Protein Albumin Amylase Hep Bs Antigen Negative Hep Bs Antibody NONREACTIVE Hep B Core Total Ab Nonreactive Hepatitis C Ab (EIA) Reactive H HIV 1&2 Ab/P24 Ag 4thGn Nonreactive 01/09/22 05:25 MCV MCH MCHC RDW Plt Count MPV Immature Gran % (Auto) Neut % (Auto) Lymph % (Auto) [place] % (Auto) Eos % (Auto) Baso % (Auto) Lymph # (Auto) [place] # (Auto) Eos # (Auto) Baso # (Auto) Abs Immat Gran (auto) Absolute Neuts (auto) Absolute Nucleated RBC Nucleated RBC % (auto) Anion Gap Estim Creat Clear Calc Estimated GFR Random Glucose Lactic Acid 0.7 Calcium Total Bilirubin Direct Bilirubin AST ALT Alkaline Phosphatase Total Protein Albumin Amylase Hep Bs Antigen Hep Bs Antibody Hep B Core Total Ab Hepatitis C Ab (EIA) HIV 1&2 Ab/P24 Ag 4thGn Microbiology Microbiology Results: Microbiology 01/08/22 21:29 Blood Culture - Preliminary Blood - Venous Prelim: GPC Gram Stain only 01/08/22 21:05 Blood Culture - Preliminary Blood - Venous Prelim: GPC Gram Stain only 01/09/22 05:04 Blood Culture - Final Blood - Venous 01/09/22 05:04 Blood Culture - Final Blood - Venous Assessment and Plan (1) Sepsis: Status: Acute (2) Substance abuse: Status: Acute (3) Cellulitis of hand: Status: Acute (4) Newly recognized heart murmur: Status: Acute Plan 37-year-old female with past medical history of IV drug use? presents to the hospital with complaints of swelling of right hand found to have? right hand cellulitis and new heart murmur #? sepsis due to right hand cellulitis -? sepsis criteria due to leukocytosis, fever, tachycardia -? likely secondary to cellulitis of the right hands versus endocarditis cannot be ruled out CT hand showed no evidence of abscess, no tenosynovitis -? has no elevated lactic acidosis, no hypotension -? continue treated with IV Zosyn and vancomycin day 1 -? follow blood cultures #? new heart murmur -? question endocarditis, follow echocardiogram DC cardiology consult continue IV antibiotics follow blood culture #? IV drug use use IV heroin and IV cocaine, denies other substances Complaining of withdrawal symptoms including abdominal pain generalized body aches and restlessness -? placed on methadone being followed by care team ?DVT profile: Lovenox ?Need continued IV antibiotics for sepsis and cellulitis as well as possible endocarditis Quality Stroke Does the patient have a stroke diagnosis?: No VTE Prior VTE?: No VTE Risk Level:: Medical - moderate - high VTE Device Contraindication: Treatment Not Indicated VTE Drug Contraindication: N/A - Med Ordered
--- NOTE | 2022-01-09 16:30 | HO.ADDICT_ITS ---
History of Present Illness Date of Service: 01/09/2022 Chief Complaint: IVDU, Hand Cellulitis Reason for Consult: MARV-withdrawal management Sources of Information: chart reviewed (Recovery Support RN) HPI Narrative: Information obtained from RN and chart review as patient somnolent when seen by this staff writer. Currently medically admitted with cellulitis of the hand. Patient reported to RN cocaine and heroin use. Reported decreasing heroin use, 3-4 bags per day, however large amounts of IV cocaine use. Reported recent history of MOUD treatment with methadone, up to 95mg QD. She reported withdrawal sx and appeared uncomfortable when seen by RN. Patient agreeable to methadone during hospitalization, unclear if goal is to continue at time of discharge. When seen by this staff writer, patient appeared comfortable, did not appear restless or diaphoretic. Able to wake briefly and reported that methadone was helpful, however quickly fell back asleep. May also be related to cocaine withdrawal Past Psychiatric History: Never admitted inpatient, her first psychiatric conta ct was at the age of 7 due to depression and abuse. h/o 3 suicide attempts, per pt. h/o cutting and burning, as well as risky behaviors. h/o [facility] 2020. reports having done other PHPs, including [facility]. Review of Systems Review of Systems Yes Unobtainable due to mental status Diagnostics Vital Signs (24Hr): Vital Signs - 24 hr 01/09/22 00:00 01/09/22 05:01 01/09/22 08:13 Temperature 103.2 F H 98.7 F Pulse Rate 81 78 Respiratory Rate 20 Blood Pressure 109/57 L 105/66 Pulse Oximetry 94 98 Oxygen Delivery Method Room Air Room Air 01/09/22 11:02 Temperature 98.8 F Pulse Rate 94 Respiratory Rate 19 Blood Pressure 111/63 Pulse Oximetry 96 Oxygen Delivery Method Room Air BMI result Body Mass Index 25.7 Labs Results: 01/09/22 05:25 01/09/22 05:25 Labs: Laboratory Results - last 48 hr 01/08/22 01/08/22 01/08/22 11:09 14:26 21:05 WBC 14.4 H RBC 3.87 L Hgb 10.9 L Hct 33.1 L MCV 85.5 MCH 28.2 MCHC 32.9 RDW 13.4 Plt Count 291 MPV 10.8 Immature Gran % (Auto) 0.5 H Neut % (Auto) 83.2 H Lymph % (Auto) 6.4 L [place] % (Auto) 9.4 Eos % (Auto) 0.3 Baso % (Auto) 0.2 Lymph # (Auto) 0.9 L [place] # (Auto) 1.4 H Eos # (Auto) 0.0 Baso # (Auto) 0.0 Abs Immat Gran (auto) 0.07 H Absolute Neuts (auto) 12.0 H Absolute Nucleated RBC 0.000 Nucleated RBC % (auto) 0.0 Sodium 137 Potassium 3.3 D Chloride 101 Carbon Dioxide 26 Anion Gap 13 BUN 12 Creatinine 0.70 Estim Creat Clear Calc 104.2 Estimated GFR > 60 Random Glucose 115 Lactic Acid Calcium 8.7 Total Bilirubin 0.7 Direct Bilirubin 0.3 AST 13 ALT 10 Alkaline Phosphatase 61 Total Protein 6.3 L Albumin 3.5 Amylase 36 COVID-19 (RUSSELL) Negative COVID-19 Clin Com See Note Hep Bs Antigen Hep Bs Antibody Hep B Core Total Ab Hepatitis C Ab (EIA) HIV 1&2 Ab/P24 Ag 4thGn 01/08/22 01/08/22 01/09/22 21:05 21:05 05:25 WBC 13.5 H RBC 3.70 L Hgb 10.5 L Hct 32.1 L MCV 86.8 MCH 28.4 MCHC 32.7 RDW 13.5 Plt Count 239 MPV 10.2 Immature Gran % (Auto) 0.9 H Neut % (Auto) 80.1 H Lymph % (Auto) 9.0 L [place] % (Auto) 9.5 Eos % (Auto) 0.1 Baso % (Auto) 0.4 Lymph # (Auto) 1.2 [place] # (Auto) 1.3 H Eos # (Auto) 0.0 Baso # (Auto) 0.1 Abs Immat Gran (auto) 0.12 H Absolute Neuts (auto) 10.8 H Absolute Nucleated RBC 0.000 Nucleated RBC % (auto) 0.0 Sodium Potassium Chloride Carbon Dioxide Anion Gap BUN Creatinine Estim Creat Clear Calc Estimated GFR Random Glucose Lactic Acid 1.0 Calcium Total Bilirubin Direct Bilirubin AST ALT Alkaline Phosphatase Total Protein Albumin Amylase COVID-19 (RUSSELL) COVID-19 Clin Com Hep Bs Antigen Negative Hep Bs Antibody NONREACTIVE Hep B Core Total Ab Nonreactive Hepatitis C Ab (EIA) Reactive H HIV 1&2 Ab/P24 Ag 4thGn Nonreactive 01/09/22 01/09/22 05:25 05:25 WBC RBC Hgb Hct MCV MCH MCHC RDW Plt Count MPV Immature Gran % (Auto) Neut % (Auto) Lymph % (Auto) [place] % (Auto) Eos % (Auto) Baso % (Auto) Lymph # (Auto) [place] # (Auto) Eos # (Auto) Baso # (Auto) Abs Immat Gran (auto) Absolute Neuts (auto) Absolute Nucleated RBC Nucleated RBC % (auto) Sodium 139 Potassium 3.3 Chloride 104 Carbon Dioxide 25 Anion Gap 13 BUN 11 Creatinine 0.69 Estim Creat Clear Calc 105.7 Estimated GFR > 60 Random Glucose 92 Lactic Acid 0.7 Calcium 7.7 L D Total Bilirubin Direct Bilirubin AST ALT Alkaline Phosphatase Total Protein Albumin Amylase COVID-19 (RUSSELL) COVID-19 Clin Com Hep Bs Antigen Hep Bs Antibody Hep B Core Total Ab Hepatitis C Ab (EIA) HIV 1&2 Ab/P24 Ag 4thGn Imaging Radiology Impressions: ITS Impressions Hand X-Ray 01/08/22 12:00 IMPRESSION: Calcified lesion/injection granuloma palmar aspect anterior to proximal fourth metacarpal with moderate dorsal hand soft tissue swelling. Further evaluation with CT with contrast is recommended. Hand CT 01/08/22 20:32 IMPRESSION: 1. Diffuse dorsal subcutaneous edema. Correlate with evidence of cellulitis on exam. No tracking soft tissue gas. 2. No loculated fluid collection to suggest abscess. No radiodense foreign body. 3. No evidence of tenosynovitis or appreciable joint effusions. Mental Status Exam Mental Status Exam Level of Consciousness: Drowsy Medications Medications Current Medications Acetaminophen (Acetaminophen 325 Mg Tablet) 650 mg PO Q6H PRN PRN Reason: Pain, Mild (Pain Scale 1-3) Last Admin: 01/09/22 10:54 Dose: 650 mg Docusate Sodium (Docusate Sodium 100 Mg Capsule) 100 mg PO DAILY PRN PRN Reason: Constipation Enoxaparin Sodium (Enoxaparin Sodium 40 Mg/0.4 Ml Syringe) 40 mg SUBCUT Q24H [facility] Last Admin: 01/09/22 01:01 Dose: 40 mg Piperacillin Sod/Tazobactam (Sod 3.375 gm/ Sodium Chloride) 50 mls @ 100 mls/hr IV Q6H [facility] Last Admin: 01/09/22 15:41 Dose: 100 mls/hr Vancomycin HCl 1,000 mg/ (Sodium Chloride) 270 mls @ 270 mls/hr IV Q12H [facility] Last Infusion: 01/09/22 15:41 Dose: Infused Methadone HCl (Methadone Hcl 20 Mg/2 Ml Oral.Conc) 20 mg PO DAILY [facility] Last Admin: 01/09/22 10:48 Dose: 20 mg Ondansetron HCl (Ondansetron Hcl 4 Mg/2 Ml Vial) 4 mg IVPUSH Q8H PRN PRN Reason: Nausea and Vomiting Pharmacy Consult (Consult Rx Vancomycin Dosing) 1 each MISCELLANE DAILY PRN PRN Reason: Consult order Pharmacy Consult (Consult Rx Perform Med Rec) 1 each MISCELLANE ONCE PRN PRN Reason: Consult order Pharmacy Consult (Consult Rx Vancomycin Dosing) 1 each MISCELLANE DAILY PRN PRN Reason: Consult order Sodium Chloride (0.9 % Sodium Chloride Flush 3 Ml Syringe) 3 ml IVFLUSH QSHIFT [facility] Last Admin: 01/09/22 15:46 Dose: 3 ml Allergies Allergies Allergy/AdvReac Type Severity Reaction Status Date / Time doxycycline Allergy Redness of Verified 09/30/20 11:47 Skin Assessment & Plan Assessment & Plan (1) Opioid use disorder: Status: Acute Code(s): F11.90 - Opioid use, unspecified, uncomplicated Assessment and Plan: * based on history and current reported use, will continue methadone 20mg tmrw * reassess in the AM regarding treatment goals and ongoing medication I spent __25____ minutes with the patient and/or on the patient floor today, greater than?50% of which was spent counseling/coordinating care. [facility] Past Medical History Medical History (Updated 01/09/22 @ 17:04 by Rose Caro CNP) Chronic post-traumatic stress disorder (PTSD) Degenerative arthritis Diverticula of intestine Endometriosis Mood disorder Opioid dependence Post traumatic stress disorder (PTSD) Substance abuse Surgical History Surgical History History of appendectomy History of delivery History of lumpectomy of right breast Social History Social History Household Members: None Housing: Homeless Do you presently have visiting nurse or other home services: No Patient Tobacco Use Status: Current everyday Tobacco user Tobacco use type: Cigarette Cigarette Packs Per Day: 0.5 Cigarettes Per Day: 10.0 Years Smoked: since I was 12 e-Cigarette/Vaping Use: Never Used Second Hand Smoke Exposure: Yes Substance Use Type: Crack/Cocaine Advance Directives: No Advance Directives Information Provided: No service: No Current occupational status: unemployed Sexual orientation: Don't Know
[2022-01-09 16:57] VITALS: BP 105/57; PULSE 91; RESP 18; TEMP 37; O2SAT 98
[2022-01-09 19:46] VITALS: BP 134/72; PULSE 86; RESP 16; TEMP 37.9; O2SAT 98
--- NOTE | 2022-01-09 22:52 | PC.NURSE ---
Pt. woke up, yelling at this RN stating that the pain and swelling to her hand is much worse than when she came in on Saturday, states that we are doing nothing for her other than leaving her alone and allowing her hand to get worse. Reminded pt. that she is receiving IV antibiotics, and sometimes it takes a few days to see a noticeable difference. Pt. also stating that she cannot move her hand or arm anymore. This RN noted her to be moving arm independently. 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 Per MD Shakira, hand looks slightly more swollen but not considerably so. Notifying Hospitalist MD Annmarie now
--- NOTE | 2022-01-09 22:59 | PC.NURSE ---
Rosalina Anguiano MD notified re: new swelling in pt.'s hand. Awaiting response from provider at this time.
[2022-01-10] MEDS: vancomycin HCL 1,000 MG in 0.9 % Sodium Chloride 250 ML 270 MG IV (00:15)
[2022-01-10] MEDS: Piperacillin Sodium/Tazobactam 3.375 GM in 0.9 % Sodium Chloride 50 ML IV ×2 (05:44→12:24)
--- NOTE | 2022-01-10 07:00 | CA_ITS ---
Transthoracic Echocardiogram Patient (Last, First, Middle): Kamini Biggs, Gender: Female Date of : 1985 Age: 37 Procedure Date: 01/10/2022 Procedure Type: Transthoracic Echocardiogram Location: ER Height: 162.56 cm Weight: 68.04 kg BSA: 1.73 m2 Heart Rate: 79 bpm BP: 108 / 57 mmHg Platform Engineer: SB Referring MD: Yojana Anguiano MD Symptoms: new heart murmur IVD Study Quality: Adequate ECG Rhythm: Sinus Conclusions: - The left ventricular systolic function is normal. The calculated ejection fraction is 63% by biplane method. - Possible basal inferior hypokinesis. - No obvious valvular pathology seen on this study. Findings Left Ventricle Normal left ventricular cavity size. There is normal left ventricular wall thickness. The left ventricular systolic function is normal. The calculated ejection fraction is 63% by biplane method. There is no evidence of regional wall motion abnormalities. Diastolic function is normal for age. Possible basal inferior hypokinesis. LV peak GLS -19.5%. Right Ventricle Normal right ventricular cavity size and systolic function. Atria Both atria are normal in size. Aortic Valve There is a normal trileaflet aortic valve. There is no aortic valve stenosis. There is no aortic valve regurgitation. Mitral Valve The mitral valve appears normal. There is trace mitral valve regurgitation. There is no mitral valve stenosis. Pulmonic Valve The pulmonic valve is likely normal. Tricuspid Valve Normal tricuspid valve structure. There is mild tricuspid valve regurgitation. The pulmonary artery systolic pressure is normal. Great Vessels The asc aorta is normal in size. Venous The inferior vena cava is normal in size and collapses greater than 50% with inspiration. Pericardium/Pleural There is no evidence of pericardial effusion. Prior Study Comparison No prior study available for comparison. Recommendations, Care & Conclusions No obvious valvular pathology seen on this study. Measurements 2D Linear Measurements IVSd: 1.06 0.6-0.9/0.6-1.0 cm LVIDd: 4.88 3.9-5.3/4.2-5.9 cm LVIDd Index: 2.82 2.4-3.2/2.2-3.1 cm/m2 LVIDs: 3.21 2.0-3.6 cm LVPWd: 0.91 0.7-1.1 cm LA Diam: 3.80 2.7-3.8/3.0-4.0 cm LAIDs Index: 2.20 1.5-2.3 cm/m2 LV Mass: 212.68 67-162/88-224 g LV Mass Index: 122.94 43-95/49-115 g/m2 LVOT Diam: 2.20 3.0+(-)1.3 cm 2D Systolic Function EF 4C: 50.40 >55% EF 2C: 70.90 >55% EF BiP: 62.50 >55% Mitral Valve MV Pk E: 0.92 MV PK A: 0.61 MV Decel Time: 205.00 E/A: 1.50 E'Lateral: 9.36 E'Medial: 8.70 E/E' Med: 10.60 E/E' Lat: 9.90 PHT: 60.00 MVA PHT: 3.67 Decel [place]: 4.51 Aortic Valve AoV Pk Timbo: 1.50 AoV Mn Tim[place]: 1.09 AoV VTI: 0.28 AoV Pk Grad: 9.00 Aov Mn Grad: 5.00 PANCHITO Cont.VTI: 2.66 LVOT LVOT Pk [place]: 1.04 LVOT Mn [place]: 0.74 LVOT VTI: 0.20 LVOT Pk Grad: 4.00 LVOT Mn Grad: 2.00 LVOT Diam: 2.20 LVOT Area: 3.80 Diastolic Function MV Pk E: 0.92 MV Pk A: 0.61 E/A: 1.50 E'Medial: 8.70 E/E' Med: 10.60 E' Laterial: 9.36 E/E' Lat: 9.90 Right Ventricle TAPSE (mm): 27.70 TVS' Timbo: 13.20 Tricuspid Valve TR Pk Tim[place]: 2.11 TR Pk Grad: 18.00 RA Press: 3.00 RVSP: 21.00 Great Vessels Aorta Sinus of Valsalva: 3.10 2.0-3.5 cm Ao Asc: 2.80 2.1-3.4 cm Pulmonary Veins Pulm Vein S/D 1.50 Pulmonary Valve PV Pk Timbo: 0.94 Peak PV Grad: 4.00 Updated in Other Vendor System with Status of Final Sylvester Harman MD electronically signed on 01/10/2022 4:56:33 PM with status of Final
[2022-01-10 07:27] LABS: Hepatitis A Antibody IgM 0.22 Index (0-0.79); ~Hepatitis A Antibody IgM Nonreactive (Nonreactive)
[2022-01-10 08:43] VITALS: BP 140/70; PULSE 105; RESP 16; TEMP 37.6; O2SAT 96
[2022-01-10] MEDS: Potassium Chloride ER 20 MEQ TAB.ER.PRT 40 MEQ PO (10:43)
[2022-01-10] MEDS: 0.9 % Sodium Chloride Flush 3 ML SYRINGE IVFLUSH ×3 (10:49→21:25)
[2022-01-10 11:06] LABS: Hematocrit 31.7 % (37.0-47.0); Hemoglobin 10.5 g/dl (12.0-16.0); Mean Corpuscular HGB Conc 33.1 g/dl (31.0-35.0); Mean Corpuscular Hemoglobin 28.1 pg (27.0-33.0); Mean Corpuscular Volume 84.8 fL (80.0-98.0); Mean Platelet Volume 11.6 fL (9.4-12.3); PLT CLUMP 1; Platelet Count 188 X10*3/uL (160-400); Red Blood Count 3.74 X10*6/uL (4.20-5.50); Red Cell Distribution Width 13.3 % (11.0-16.0); White Blood Count 8.4 X10*3/uL (4.8-10.8)
--- NOTE | 2022-01-10 11:08 | MHC.CM.PN ---
Per ROUNDS discussion, Patient is not yet medically cleared for dc (drug withdrawal, Methadone started here, IV Zosyn, IV Vanco); CM will follow for dc planning(Homeless vs STR for ? LT IVABT??)
[2022-01-10 11:16] LABS: Creatinine Clr Calc Pharmacy 115.9; Estimated Glomerular Filt Rate > 60
[2022-01-10 11:28] LABS: Vancomycin Trough 7.1 mcg/mL (10.0-20.0)
--- NOTE | 2022-01-10 11:56 | HE.PHANOTE ---
VANCO ADDENDUM Increasing dose to 1500mg Q12H with predicted AUC 490mg/L; next trough to be drawn 01/11/22 @1000
[2022-01-10] MEDS: Acetaminophen 325 MG TABLET 650 MG PO ×2 (12:15→21:22)
[2022-01-10] MEDS: methADONE HCl 20 MG/2 ML ORAL.CONC PO (12:16)
[2022-01-10] MEDS: HYDROmorphone HCl 0.5 MG/0.5 ML SYRINGE IVPUSH (12:19)
--- NOTE | 2022-01-10 12:56 | P.PNIM_ITS ---
Subjective Subjective Date of Service: 01/10/22 Interval History: very anxious restless, pulling site monitor leads, concern about worsening right hand swelling, denies fever chills no fevers, tolerating diet no acute issues overnight. Complaining of withdrawal symptoms pain. Review of Systems [employer] no headache no dizziness CVS no chest pain, no palpitation respiratory no cough, no shortness of breath Review of Systems: Yes all other systems are reviewed and are negative Physical Exam Vital Signs: Vital Signs: Last Vital Signs Temp 99.6 F 01/10/22 08:43 Pulse 105 H 01/10/22 08:43 Resp 16 01/10/22 08:43 BP 140/70 H 01/10/22 08:43 Pulse Ox 96 01/10/22 08:43 O2 Del Method 01/10/22 08:43 BMI result Body Mass Index 25.7 Const: Other: General awake alert restless anxious, no acute distress.? Neck no JVD. CVS? regular rate rhythm, systolic murmur Respiratory lungs clear to auscultation, no respiratory distress, no wheeze, no rhonchi. Gastrointestinal abdomen soft, nontender, bowel sounds audible, no guarding , no rigidity. Extremities right hand swollen, redness improved Neuro? speech clear, moving all 4 extremities. ? Objective Data Active Medications Acetaminophen (Acetaminophen 325 Mg Tablet) 650 mg PO Q6H PRN PRN Reason: Pain, Mild (Pain Scale 1-3) Last Admin: 01/10/22 12:15 Dose: 650 mg Documented By: JOSSY Docusate Sodium (Docusate Sodium 100 Mg Capsule) 100 mg PO DAILY PRN PRN Reason: Constipation Enoxaparin Sodium (Enoxaparin Sodium 40 Mg/0.4 Ml Syringe) 40 mg SUBCUT Q24H [facility] Last Admin: 01/09/22 22:43 Dose: 40 mg Documented By: NED Piperacillin Sod/Tazobactam (Sod 3.375 gm/ Sodium Chloride) 50 mls @ 100 mls/hr IV Q6H [facility] Last Admin: 01/10/22 12:24 Dose: 100 mls/hr Documented By: JOSSY Vancomycin HCl 1,500 mg/ (Sodium Chloride) 500 mls @ 333.333 mls/hr IV Q12H [facility] Methadone HCl (Methadone Hcl 20 Mg/2 Ml Oral.Conc) 20 mg PO DAILY [facility] Last Admin: 01/10/22 12:16 Dose: 20 mg Documented By: JOSSY Ondansetron HCl (Ondansetron Hcl 4 Mg/2 Ml Vial) 4 mg IVPUSH Q8H PRN PRN Reason: Nausea and Vomiting Oxycodone HCl (Oxycodone Hcl Immed Release 5 Mg Tablet) 5 mg PO Q4H PRN PRN Reason: Pain, Moderate (Pain Scale 4-6 Pharmacy Consult (Consult Rx Vancomycin Dosing) 1 each MISCELLANE DAILY PRN PRN Reason: Consult order Pharmacy Consult (Consult Rx Perform Med Rec) 1 each MISCELLANE ONCE PRN PRN Reason: Consult order Pharmacy Consult (Consult Rx Vancomycin Dosing) 1 each MISCELLANE DAILY PRN PRN Reason: Consult order Sodium Chloride (0.9 % Sodium Chloride Flush 3 Ml Syringe) 3 ml IVFLUSH QSHIFT [facility] Last Admin: 01/10/22 10:49 Dose: 3 ml Documented By: JOSSY Labs CBC & Chem 7: 01/10/22 10:38 01/10/22 10:38 Labs: Laboratory Results - last 24 hr 01/08/22 01/10/22 01/10/22 21:05 10:38 10:38 MCV 84.8 MCH 28.1 MCHC 33.1 RDW 13.3 Plt Count 188 MPV 11.6 Absolute Nucleated RBC 0.000 Nucleated RBC % (auto) 0.0 Estim Creat Clear Calc Estimated GFR Vancomycin Trough 7.1 L Hepatitis A IgM Ab Nonreactive 01/10/22 10:38 MCV MCH MCHC RDW Plt Count MPV Absolute Nucleated RBC Nucleated RBC % (auto) Estim Creat Clear Calc 115.9 Estimated GFR > 60 Vancomycin Trough Hepatitis A IgM Ab Microbiology Microbiology Results: Microbiology 01/08/22 21:29 Blood Culture - Preliminary Blood - Venous Streptococcus pyogenes (Grp A) 01/08/22 21:05 Blood Culture - Preliminary Blood - Venous Streptococcus pyogenes (Grp A) 01/09/22 05:04 Blood Culture - Final Blood - Venous 01/09/22 05:04 Blood Culture - Final Blood - Venous Assessment and Plan (1) Sepsis: Status: Acute (2) Substance abuse: Status: Acute (3) Cellulitis of hand: Status: Acute (4) Newly recognized heart murmur: Status: Acute Plan 37-year-old female with past medical history of IV drug use? presents to the hospital with complaints of swelling of right hand found to have? right hand cellulitis and new heart murmur #? sepsis due to right hand cellulitis ? met sepsis criteria due to leukocytosis, fever, tachycardia WBC normalized no recurrent fever, persistent tachycardia ? likely secondary to cellulitis of the right hands versus endocarditis cannot be ruled out CT hand showed no evidence of abscess, no tenosynovitis echo pending ? has no elevated lactic acidosis, no hypotension 2/2 blood cultures growing Streptococcus pyogenes, repeat blood culture pending ? on IV Zosyn and vancomycin day 2, will transition to IV ceftriaxone 2 g daily will add oxycodone id consult obtained #? new heart murmur -? question endocarditis, follow echocardiogram, continue IV antibiotics follow repeat blood culture #? IV drug use , IV heroin and IV cocaine, denies other substances Complaining of withdrawal symptoms including abdominal pain generalized body aches and restlessness -? continue methadone being followed by care team ?DVT profile: Lovenox ?Need continued IV antibiotics for sepsis and cellulitis as well as possible endocarditis Quality Stroke Does the patient have a stroke diagnosis?: No VTE Prior VTE?: No VTE Risk Level:: Medical - moderate - high VTE Device Contraindication: Treatment Not Indicated VTE Drug Contraindication: N/A - Med Ordered
[2022-01-10 16:12] VITALS: BP 137/69; PULSE 89; RESP 15; O2SAT 99
[2022-01-10] MEDS: cefTRIAXone sodium 2 GM in 0.9 % Sodium Chloride 50 ML IV (16:19)
--- NOTE | 2022-01-10 19:32 | PC.NURSE ---
report recieved from day shift RN. report called to medical field representative - pt to be transported to med surg floor shortly
[2022-01-10 20:26] VITALS: BP 137/79; PULSE 100; RESP 16; TEMP 37; O2SAT 97
[2022-01-10 21:09] VITALS: BMI 26.9
[2022-01-10] MEDS: oxyCODONE HCl Immed Release 5 MG TABLET PO (21:21)
[2022-01-10] MEDS: Enoxaparin Sodium 40 MG/0.4 ML SYRINGE SUBCUT (21:22)
[2022-01-10 22:20] LABS: CDiff Gene PCR NEGATIVE (Negative)
--- NOTE | 2022-01-10 23:04 | W.PM.IDCN ---
History of Present Illness Data of Consult Service Date: 01/10/22 Requesting physician: Charlotte Cadena Primary Care Provider: Marcela Lomeli NP HPI Reason for consult: right hand pain,bacteremia She reports injecting cocaine two days ago into right hand. She has no fever now. She has Group A strep blood. Review of Systems Review of Systems: Yes all other systems are reviewed and are negative PMFSH Past Medical History Medical History Chronic post-traumatic stress disorder (PTSD) Degenerative arthritis Diverticula of intestine Endometriosis Mood disorder Opioid dependence Post traumatic stress disorder (PTSD) Substance abuse Family History Family history: reviewed and not pertinent Surgical History Surgical History History of appendectomy History of delivery History of lumpectomy of right breast Social History Social History Household Members: None Housing: Homeless Do you presently have visiting nurse or other home services: No Patient Tobacco Use Status: Current everyday Tobacco user Tobacco use type: Cigarette Cigarette Packs Per Day: 0.5 Cigarettes Per Day: 10.0 Years Smoked: 25 e-Cigarette/Vaping Use: Never Used Second Hand Smoke Exposure: Yes Substance Use Type: Crack/Cocaine and Other service: No Current occupational status: unemployed Sexual orientation: Don't Know Meds Allergies Allergy/AdvReac Type Severity Reaction Status Date / Time doxycycline Allergy Redness of Verified 09/30/20 11:47 Skin Active Medications: Current Medications Acetaminophen (Acetaminophen 325 Mg Tablet) 650 mg PO Q6H PRN PRN Reason: Pain, Mild (Pain Scale 1-3) Last Admin: 01/10/22 21:22 Dose: 650 mg Docusate Sodium (Docusate Sodium 100 Mg Capsule) 100 mg PO DAILY PRN PRN Reason: Constipation Enoxaparin Sodium (Enoxaparin Sodium 40 Mg/0.4 Ml Syringe) 40 mg SUBCUT Q24H [facility] Last Admin: 01/10/22 21:22 Dose: 40 mg Ceftriaxone Sodium 2 gm/ (Sodium Chloride) 50 mls @ 100 mls/hr IV Q24H [facility] Last Infusion: 01/10/22 17:04 Dose: Infused Methadone HCl (Methadone Hcl 20 Mg/2 Ml Oral.Conc) 20 mg PO DAILY [facility] Last Admin: 01/10/22 12:16 Dose: 20 mg Ondansetron HCl (Ondansetron Hcl 4 Mg/2 Ml Vial) 4 mg IVPUSH Q8H PRN PRN Reason: Nausea and Vomiting Oxycodone HCl (Oxycodone Hcl Immed Release 5 Mg Tablet) 5 mg PO Q4H PRN PRN Reason: Pain, Moderate (Pain Scale 4-6 Last Admin: 01/10/22 21:21 Dose: 5 mg Pharmacy Consult (Consult Rx Vancomycin Dosing) 1 each MISCELLANE DAILY PRN PRN Reason: Consult order Pharmacy Consult (Consult Rx Perform Med Rec) 1 each MISCELLANE ONCE PRN PRN Reason: Consult order Pharmacy Consult (Consult Rx Vancomycin Dosing) 1 each MISCELLANE DAILY PRN PRN Reason: Consult order Sodium Chloride (0.9 % Sodium Chloride Flush 3 Ml Syringe) [facility] Last Admin: 01/10/22 21:25 Dose: 3 ml Home Medications Medication Instructions Recorded Confirmed Last Taken Type No Known Home Meds 01/09/22 01/09/22 Unknown History Physical Exam Vital Signs: Vital Signs: Last Vital Signs Temp 98.6 F 01/10/22 20:26 Pulse 100 01/10/22 20:26 Resp 16 01/10/22 20:26 BP 137/79 01/10/22 20:26 Pulse Ox 97 01/10/22 20:26 O2 Del Method 01/10/22 20:26 BMI result Body Mass Index 26.9 Const: General: cooperative HEENT: Head: Yes normal to inspection Face and sinus: Yes normal facial exam Mouth: Normal oral and palatal mucosa present Teeth and gingiva: dentition normal Eyes: General: appearance normal, both eyes and all related structures Pupils: Equal, round and reactive pupils present Resp: Effort & Inspection: normal respiratory effort Cardio: Other: 2/6 RILEY Rate: regular rate Rhythm: regular rhythm GI: Palpation (GI): Soft to palpation and nontender : General: Yes no CVA tenderness Back/Spine/Pelvis: Back: no CVA tenderness Skin: General skin exam: no rashes or lesions noted Neuro: General: moves all extremities Cranial nerves: Yes Equal, round and reactive pupils present Extrem: Other: right hand swelling Psych: Appearance: grossly normal Results Labs CBC & Chem 7: 01/10/22 10:38 01/10/22 10:38 Labs: Short CBC 01/10/22 Range/Units 10:38 WBC 8.4 (4.8-10.8) X10*3/uL Hgb 10.5 L (12.0-16.0) g/dl Hct 31.7 L (37.0-47.0) % Plt Count 188 (160-400) X10*3/uL BMP 01/10/22 10:38 Creatinine 0.63 Microbiology Microbiology Results: Microbiology 01/08/22 21:29 Blood - Venous Blood Culture - Preliminary Streptococcus pyogenes (Grp A) 01/08/22 21:05 Blood - Venous Blood Culture - Preliminary Streptococcus pyogenes (Grp A) 01/09/22 05:04 Blood - Venous Blood Culture - Final 01/09/22 05:04 Blood - Venous Blood Culture - Final Assessment and Plan (1) Opioid use disorder: Status: Acute (2) Sepsis: Status: Acute Bacteremia ,Group A strep IVDU Hand cellulitis (3) Newly recognized heart murmur: Status: Acute Plan Hand to see right hand. Ceftriaxone for 4 weeks probably/ Follow echo
[2022-01-10 23:59] VITALS: BP 117/63; PULSE 85; RESP 16; TEMP 36.6; O2SAT 96
[2022-01-11] MEDS: diphenhydrAMINE HCL 50 MG/ML VIAL 25 MG IVPUSH (00:26)
[2022-01-11] MEDS: oxyCODONE HCl Immed Release 5 MG TABLET PO ×2 (03:40→11:30)
[2022-01-11] MEDS: Acetaminophen 325 MG TABLET 650 MG PO ×2 (03:40→11:30)
[2022-01-11 04:00] VITALS: BP 108/66; PULSE 74; RESP 18; TEMP 36.2; O2SAT 96
[2022-01-11 07:47] VITALS: BP 111/62; PULSE 69; RESP 16; TEMP 36.2; O2SAT 95
[2022-01-11] MEDS: 0.9 % Sodium Chloride Flush 3 ML SYRINGE IVFLUSH (07:47)
[2022-01-11] MEDS: methADONE HCl 20 MG/2 ML ORAL.CONC PO (07:47)
[2022-01-11 07:48] LABS: Creatinine Clr Calc Pharmacy 130.8; Estimated Glomerular Filt Rate > 60
[2022-01-11 10:36] LABS: Vancomycin Trough < 3.0 mcg/mL (10.0-20.0)
--- NOTE | 2022-01-11 11:09 | MHC.RECOVRN ---
T/W met w/ pt, pt head covered, watching t.v, alert. Pt states no withdrawals and stable on current MTD dose. Pt states feeling bad, due to pain in the hand. Pt request hair wash. T/W spoke w/ floor Melo STRINGER and alerted Melo to pt request for hair wash, Melo states can do at bedside as pt is not eligible for shower due to manager cardiac cath. T/W let pt know that staff were alerted to hair wash request. Provider aware.
--- NOTE | 2022-01-11 12:01 | HO.PM.IMPN ---
Subjective Subjective Date of Service: 01/11/22 Interval History: Seen and examined this morning Follow-up for right hand cellulitis, strep bacteremia Reporting pain and right hand, denies fever, chills Review of Systems Review of Systems: Yes all other systems are reviewed and are negative Constitutional Constitutional: Denies chills and Denies fever(s) Cardiovascular Cardiovascular: Denies chest pain, Denies palpitations and Denies dyspnea Respiratory Respiratory: Denies cough and Denies dyspnea Gastrointestinal Gastrointestinal: Denies abdominal pain Endocrine Endocrine: Denies palpitations Physical Exam Vital Signs: Vital Signs: Last Vital Signs Temp 97.1 F 01/11/22 07:47 Pulse 69 01/11/22 07:47 Resp 16 01/11/22 07:47 BP 111/62 01/11/22 07:47 Pulse Ox 95 01/11/22 07:47 O2 Del Method 01/11/22 07:47 BMI result Body Mass Index 26.9 Const: General: alert and awake Nutritional Appearance: average body habitus Orientation/consciousness: patient oriented x3 Resp: Effort & Inspection: normal respiratory effort and able to speak in complete sentences Auscultation: clear to auscultation bilaterally Cardio: Rate: regular rate GI: Inspection: No distended Palpation (GI): Soft to palpation and nontender Skin: Other: right hand wrist with some swelling, erythema; exam limited due to decreased patient tolerance Neuro: General: patient oriented x3 Extrem: General: Yes no pedal edema Objective Data Active Medications Acetaminophen (Acetaminophen 325 Mg Tablet) 650 mg PO Q6H PRN PRN Reason: Pain, Mild (Pain Scale 1-3) Last Admin: 01/11/22 11:30 Dose: 650 mg Documented By: YENI Docusate Sodium (Docusate Sodium 100 Mg Capsule) 100 mg PO DAILY PRN PRN Reason: Constipation Enoxaparin Sodium (Enoxaparin Sodium 40 Mg/0.4 Ml Syringe) 40 mg SUBCUT Q24H [facility] Last Admin: 01/10/22 21:22 Dose: 40 mg Documented By: MAXIMO Ceftriaxone Sodium 2 gm/ (Sodium Chloride) 50 mls @ 100 mls/hr IV Q24H [facility] Last Infusion: 01/10/22 17:04 Dose: 0 mls/hr Documented By: SOMMER Methadone HCl (Methadone Hcl 20 Mg/2 Ml Oral.Conc) 20 mg PO DAILY [facility] Last Admin: 01/11/22 07:47 Dose: 20 mg Documented By: YENI Ondansetron HCl (Ondansetron Hcl 4 Mg/2 Ml Vial) 4 mg IVPUSH Q8H PRN PRN Reason: Nausea and Vomiting Oxycodone HCl (Oxycodone Hcl Immed Release 5 Mg Tablet) 5 mg PO Q4H PRN PRN Reason: Pain, Moderate (Pain Scale 4-6 Last Admin: 01/11/22 11:30 Dose: 5 mg Documented By: YENI Pharmacy Consult (Consult Rx Vancomycin Dosing) 1 each MISCELLANE DAILY PRN PRN Reason: Consult order Pharmacy Consult (Consult Rx Perform Med Rec) 1 each MISCELLANE ONCE PRN PRN Reason: Consult order Pharmacy Consult (Consult Rx Vancomycin Dosing) 1 each MISCELLANE DAILY PRN PRN Reason: Consult order Sodium Chloride (0.9 % Sodium Chloride Flush 3 Ml Syringe) 3 ml IVFLUSH QSHIFT [facility] Last Admin: 01/11/22 07:47 Dose: 3 ml Documented By: YENI Labs CBC & Chem 7: 01/10/22 10:38 01/11/22 06:06 Labs: Laboratory Results - last 24 hr 01/10/22 01/11/22 01/11/22 20:50 06:06 09:43 Estim Creat Clear Calc 130.8 Estimated GFR > 60 Vancomycin Trough < 3.0 L C. difficile Tox B Gene NEGATIVE Microbiology Microbiology Results: Microbiology 01/08/22 21:29 Blood Culture - Final Blood - Venous Streptococcus pyogenes (Grp A) 01/08/22 21:05 Blood Culture - Final Blood - Venous Streptococcus pyogenes (Grp A) Assessment and Plan (1) Cellulitis of hand: Status: Acute (2) Streptococcal bacteremia: Status: Acute Plan 37-year-old female with past medical history of IV drug use? presents to the hospital with complaints of swelling of right hand found to have? right hand cellulitis and new heart murmur #? sepsis due to right hand cellulitis ? met sepsis criteria due to leukocytosis, fever, tachycardia WBC normalized no recurrent fever, tachycardia resolved ? likely secondary to cellulitis of the right hands versus endocarditis cannot be ruled out CT hand showed no evidence of abscess, no tenosynovitis echo with no obvious valvular pathology 2/2 blood cultures growing Streptococcus pyogenes, repeat blood culture pending ? on IV Zosyn and vancomycin initially, transitioned to IV ceftriaxone 2 g daily on 01/10 Seen by ID-likely 4 weeks of IV ceftriaxone Will need PICC line when blood cultures clear #? new heart murmur Echo negative for endocarditis Does show possible inferior hypokinesis- discussed with cardiology could be secondary to cocaine use, spasm No further cardiac workup indicated. Recommend complete abstinence from drugs #? IV drug use , IV heroin and IV cocaine, denies other substances -? continue methadone being followed by care team ?DVT profile: Lovenox ?Need continued IV antibiotics for sepsis, cellulitis, bacteremia. Will need long-term antibiotics Quality Stroke Does the patient have a stroke diagnosis?: No VTE Prior VTE?: No VTE Risk Level:: Medical - moderate - high VTE Device Contraindication: Treatment Not Indicated VTE Drug Contraindication: N/A - Med Ordered
[2022-01-11] MEDS: cefTRIAXone sodium 2 GM in 0.9 % Sodium Chloride 50 ML IV (12:09)
--- NOTE | 2022-01-11 14:56 | PM.EVENT ---
Event Note Date of Service: 01/11/22 Event Note: Patient eloped. Per report she was found walking on the street by [employer] and had removed her IV. Patient was called and the risks of leaving against medical advice were discussed, she understands that without IV antibiotic she is at risk for for sepsis and ultimately . She states that she will consider returning to the emergency department. Final discharge diagnoses: Group a strep bacteremia secondary to right hand cellulitis IVDU Right hand cellulitis
== END 2022-01-11 14:44 | disposition left against medical advice (07) | DRG 720 ==
LOC: HO.ED 01-09 01:25 → HO.EDOVER 01-09 02:18 → HO.S3 01-10 19:11
PROVIDERS: Emergency Medicine; Hospitalist; Admitting Provider Internal Medicine; Emergency Provider Emergency Medicine; PCP Nurse Practitioner Family; Visit Provider Physician Assistant Medical
DX: A41.9 Sepsis, unspecified organism (principal); I38 Endocarditis, valve unspecified; F14.10 Cocaine abuse, uncomplicated; F17.210 Nicotine dependence, cigarettes, uncomplicated; L03.113 Cellulitis of right upper limb; F43.12 Post-traumatic stress disorder, chronic; B95.0 Streptococcus, group A, as the cause of diseases classified elsewhere; N80.9 Endometriosis, unspecified; Z71.6 Tobacco abuse counseling; Z88.1 Allergy status to other antibiotic agents; Z20.822 Contact with and (suspected) exposure to COVID-19; Z91.51 Personal history of suicidal behavior; Z91.52 Personal history of nonsuicidal self-harm
CPT/HCPCS: 36415; 73120; 73200; 80048; 80076; 80202; 82150; 82565; 83605; 85025; 85027; 86704; 86706; 86709; 86803; 87040; 87147; 87186; 87205; 87340; 87493; 87635; 93306; 93356; 93971; 96361; 96374; 99284; 99285; J0696; J1170; J1200; J1650; J2543; J3370

== ENCOUNTER 2022-01-12 16:48 | Emergency (ER) | payer MEDICAID, SELFPAY ==
[2022-01-12 18:49] VITALS: BP 130/74; PULSE 85; RESP 18; TEMP 36.8; O2SAT 98; BMI 26.6
== END 2022-01-12 23:53 | disposition left against medical advice (07) ==
LOC: HO.ED 23:50
PROVIDERS: Emergency Provider Emergency Medicine
DX: R79.89 Other specified abnormal findings of blood chemistry (principal)
CPT/HCPCS: 99281

== ENCOUNTER 2022-02-11 13:05 | Emergency (ER) | payer MEDICAID, SELFPAY | END 2022-02-11 14:33 | disposition left against medical advice (07) | PROVIDERS: Emergency Provider Emergency Medicine | DX: F11.23 Opioid dependence with withdrawal (principal) ==